=== PATIENT | female | born 1990 | race Caucasian/White ===

== ENCOUNTER 2018-11-21 05:05 | Inpatient (IN) | payer OTHER, SELFPAY ==
--- NOTE | 2018-11-15 14:00 | HP.PCM_ITS ---
History and Physical Date of Admission: 11/21/18 Pre-Op History and Physical HPI: The patient is a 28 year old female presenting for pre-operative visit. She is scheduled for , for h/o 4th degree lac on 11/21/18. Procedure discussed along with risks, benefits and complications. Other alternatives discussed for management. Consent form signed? Yes. PAST MEDICAL HISTORY Diagnosis Date ? Anemia ? Anxiety ? anxiety ? Gestational diabetes mellitus, class A1 12/11/2015 ? History of blood transfusion 4 units after delivery ? hemorrhage PAST SURGICAL HISTORY Procedure Laterality Date ? EXTRACTION ERUPTED TOOTH/EXR wisdom ? PAST SURGICAL HISTORY OF repair 4th degree vag lac and sulcus tear, D&C for PPH ? SKIN BIOPSY HX benign mole removal Current Outpatient Medications Medication Sig Dispense Refill ? ferrous sulfate (IRON ORAL) Take by mouth. ? ranitidine (ZANTAC) 150 mg tablet ? docosahexanoic acid (DHA ORAL) Take by mouth. ? PNV95/FERROUS FUMARATE/FA ( ORAL) Take by mouth. No current facility-administered medications for this visit. 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 Osteoporosis Mother ? Heart Mother heart murmur ? Diabetes Father ? Psychiatry Father anxiety ? No Known Problems Brother ? No Known Problems Sister ? Osteoporosis Maternal Grandmother ? Heart Maternal Grandfather ? No Known Problems Paternal Grandmother ? No Known Problems Paternal Grandfather ? No Known Problems Son REVIEW OF SYMPTOMS:. GENERAL: denies fevers or chills ENDOCRINOLOGY: has not been on steroids Cardiology : denies palpitations or chest pain Respiratory: denies SOB or cough Hematology: denies history of prolonged bleeding or easy bruising or VTE Allergy: Denies history of personal or family history of allergy to anesthesia PHYSICAL EXAMINATION: VITALS: Last menstrual period 02/20/2018, currently . GENERAL: The patient is well nourished, well hydrated in no acute distress. , The patient is oriented to time, place, and person. NECK: Supple. No lynphadenopathy, normal thyroid, no thyromegaly. LUNGS: Clear to auscultation bilaterally. no wheezes, rhonchi or rales HEART: Regular rate and rhythm, Normal heart sounds and No murmurs or gallops abd- soft, nontender, gravid IMPRESSION: 39 weeks 1 day on 11/21/18 for primary c/s for h/o LGA fetus and 4th degree lac PLAN: The risks/benefits/alternatives and personal involved for the planned c- s were reviewed with the patient. Her questions were answered to her satisfaction and she desires to proceed. Consent was signed. I reviewed with her postop instructions and expectations. I have reviewed and updated past medical and surgical history, medications and allergies this H&P was completed in my office on 11/15/18 Madison Wright M.D.
[2018-11-21] VITALS (21 sets, daily range): BP systolic 94–109; BP diastolic 36–72; PULSE 67–106; RESP 15–20; TEMP 36.1–36.7; O2SAT 97–100; BMI 28.8
[2018-11-21] MEDS: Lactated Ringers 1,000 ML 999 ML IV (05:40)
[2018-11-21 06:11] LABS: Absolute Lymphocyte Count 1.68 X10^3/ul (0.83-4.51); Absolute Neutrophil Count 4.5 X10^3/uL (2.0-7.7); Basophil# 0.02 X10^3/uL; Basophil% 0.3 % (0-1); Eosinophil# 0.12 X10^3/uL; Eosinophils% 1.7 % (0-5); Hematocrit 34.6 % (37-47); Hemoglobin 11.3 g/dl (12.0-15.0); Lymphocyte # 1.68 X10^3/ul (4.0); Lymphocyte % 23.5 % (19-41); Mean Corp Hgb Conc 32.7 g/gl (32-36); Mean Corpuscular Hgb 28.4 pg (27.0-32.0); Mean Corpuscular Volume 86.9 fL (81-99); Mean Platelet Vol. 11.1 fl (6.2-12.0); Monocyte# 0.77 X10^3/uL; Monocyte% 10.8 % (0-10); Neutrophil # 4.47 X10^3/uL (2.7-7.7); Neutrophil % 62.6 % (47-70); Platelet Count 178 K/mm3 (150-450); RBC Distribution Width CV 15.3 % (11.6-14.6); RBC Distribution Width SD 48.9 fl (35.1-43.9); Red Blood Count 3.98 M/mm3 (4.2-5.4); White Blood Count 7.1 K/mm3 (4.4-11.0)
[2018-11-21 06:18] LABS: POSITIVE COUNT NO; POSITIVE DIFFERENTIAL NO; POSITIVE MORPHOLOGY NO
[2018-11-21] MEDS: Lactated Ringers 1,000 ML 150 ML IV (06:42)
[2018-11-21] MEDS: Sodium Citrate/Citric Acid 30 ML UDC PO (07:15)
[2018-11-21] MEDS: Cefazolin 2 GM in 0.9% Normal Saline 100 ML IV (07:26)
[2018-11-21] MEDS: Oxytocin 30 units/NS 500 ml 30 UNITS/500 ML IV.SOLN 167 UNITS IV (07:47)
[2018-11-21] MEDS: Methylergonovine 0.2 MG/ML Ampul IM (07:49)
[2018-11-21] MEDS: miSOPROStol 200 MCG Tablet 400 MCG BUCCAL (07:52)
[2018-11-21] MEDS: Carboprost Tromethamine 250 MCG/ML Ampul IM (07:55)
--- NOTE | 2018-11-21 08:14 | OP.PCM_ITS ---
Report of Operation Date of Procedure: 11/21/18 toll bridge operator: Roseline Olsen Type of Anesthesia:: Spinal Anesthesiologist: Abdulkadir Belle Special Medications: cytotec buccal and rectal, methergine, hemabate Delivery Classification: Scheduled Final ERIC: 11/27/18 Final ERIC Source: US <20 weeks Gestational age: 39 Weeks and 1 Days Indications for : - - primary c/s, h/o 4th degree laceration and LGA infant Description of Procedure: The patient was taken to the operating room. She was prepped and draped in the dorsal supine position with a leftward tilt. A Pfannenstiel skin incision was made approximately 2 cm above the symphysis pubis and carried through to underlying layer fascia with the scalpel. The fascia was incised incised in the midline and extended laterally with the Patel scissors. The fascia was dissected off the rectus muscles with blunt and sharp dissection. The rectus muscles were in the midline and the peritoneum was entered bluntly. The peritoneal incision was stretched and the bladder blade was placed. The uterine incision was made in a low transverse fashion with the scalpel and extended superiorly and inferiorly with blunt dissection. The amniotic membranes were ruptured bluntly and clear amniotic fluid returned. The infant's head was brought to the incision in the flexed position and delivered without difficulty. The remainder of the was delivered with gentle traction and fundal pressure in the standard fashion. The mouth and nares were bulb suctioned. The cord was clamped and cut as the infant was stimulated. Cord clamping was delayed approximately 30 seconds. The infant was handed off to the waiting nursing staff at the head of the bed for immediate skin to skin. The placenta was delivered with fundal massage and gentle traction in the standard fashion. The uterus was exteriorized and cleared of all clots and debris. The cervix was dilated with a ring forcep. It was noted that there was some atony. Immediate fundal massage was initiated. Anesthesia began to inc rease the rate of Pitocin infusion. Patient was then given Methergine IM x1. I began to close the uterine incision. There was still some significant atony. 400 mcg of Cytotec was placed buccally. The uterine incision was closed with #1 Vicryl in a running locked fashion. A second layer of the same suture was used in an imbricating fashion to obtain hemostasis. The incision was examined and was found to be hemostatic. However, the uterus was still a little bit atonic. A dose of Hemabate was then given IM. The uterus was placed back into the peritoneal cavity and hemostasis was again c onfirmed. The rectus muscles were examined and any bleeding was Bovie cauterized. The parietal peritoneum and rectus muscles were closed en bloc with an 0 Vicryl running suture. The rectus fascia was examined and any bleeding was Bovie cauterized and the rectus fascia was closed with 1 Vicryl suture in a running standard fashion. At this point, the patient began to get nauseous and the buccal Cytotec was spit out. The uterus was more firm at this point. Patient then had an emesis. The subcutaneous tissue was examining and any bleeding was Bovie cauterized. The skin was closed in a subcuticular fashion by the PROCESS LEAD with me present in the labor and delivery suite. I performed the remainder of the procedure with assistance. 400 mcg of Cytotec was placed rectally at the completion of the procedure to help prevent further atony. All sponge, lap, and needle counts were correct. The patient was taken to her room for recovery in a stable condition. Amniotic Membrane Rupture Type: Artificial Amniotic Fluid Description: Clear Placenta Disposition: [facility] Drain: [place] to straight drain Fluids Replaced: 1000cc Cord Entanglement: None Nuchal Cord Compression: Without compression Cord Vessel Description: 3 Vessels Esitmated Blood Loss (ml): 1000 Gender: Male (1 minute): 8 (5 minute): 9 Delayed cord clamping: Yes Pre-op Antibiotic Given: Ancef 2 grams IV x1 Complications: None - Admit VTE Documentation VTE Present on Admission: No VTE Mechan Device Prophylaxis: SCD's VTE Pharm Prophylaxis ordered?: Yes
[2018-11-21] MEDS: miSOPROStol 200 MCG Tablet 400 MCG RECTAL (08:23)
[2018-11-21] MEDS: Lactated Ringers 1,000 ML 100 ML IV ×2 (09:04→13:10)
[2018-11-21] MEDS: Ondansetron 4 MG/2 ML Vial IV (13:26)
[2018-11-21] MEDS: Ketorolac 30 MG/ML Syringe IV ×2 (15:30→21:09)
--- NOTE | 2018-11-21 15:41 | NURSING ---
1530 pt oob up to chair
--- NOTE | 2018-11-21 16:49 | NURSING ---
1630 pt returned to bed
[2018-11-21] MEDS: Senna/Docusate Sodium 1 Tablet PO (21:09)
[2018-11-22 01:45] VITALS: PULSE 91; RESP 18; O2SAT 98
[2018-11-22] MEDS: Ketorolac 30 MG/ML Syringe IV ×3 (03:39→14:56)
[2018-11-22 03:40] VITALS: BP 94/44; PULSE 86; RESP 18; TEMP 36.6; O2SAT 98
[2018-11-22] MEDS: 0.9% Saline Lock 10 ML Syringe IV ×3 (03:45→14:56)
[2018-11-22 05:55] VITALS: PULSE 74; RESP 18; O2SAT 96
[2018-11-22] MEDS: Enoxaparin 40 MG/0.4 ML Syringe SC (05:57)
[2018-11-22 06:48] LABS: Hematocrit 28.4 % (37-47); Hemoglobin 9.3 g/dl (12.0-15.0); Mean Corp Hgb Conc 32.7 g/gl (32-36); Mean Corpuscular Hgb 29.2 pg (27.0-32.0); Mean Platelet Vol. 11.4 fl (6.2-12.0); Platelet Count 168 K/mm3 (150-450); RBC Distribution Width CV 15.4 % (11.6-14.6); RBC Distribution Width SD 48.9 fl (35.1-43.9); Red Blood Count 3.19 M/mm3 (4.2-5.4); Scan Indicated on CBC? Y/N NO; White Blood Count 9.8 K/mm3 (4.4-11.0)
--- NOTE | 2018-11-22 07:47 | PCM.PN.OB ---
Subjective: Pain well controlled, average lochia. Manuel. regular diet. - Physical Exam General: Alert, Cooperative, No apparent distress Abdomen: Soft, Distended - mildly, softly, Tender - appropriately Extremities: Edema - trace Skin: Incision - bandage clean, dry and intact Vital Signs Temp Pulse Resp BP Pulse Ox 97.8 F 74 18 94/44 L 96 11/22/18 03:40 11/22/18 05:55 11/22/18 05:55 11/22/18 03:40 11/22/18 05:55 Oxygen Delivery Method Room Air Weight: 78.6 kg Body Mass Index (BMI) 28.8 Intake and Output for Last 24 Hours 11/20/18 11/21/18 11/22/18 23:59 23:59 23:59 Intake Total 6560 / 6560 Output Total 3350 / 3350 Balance 3210 / 3210 Laboratory Tests Past 24 Hrs 11/22/18 06:10 WBC 9.8 RBC 3.19 L Hgb 9.3 L Hct 28.4 L MCV 89.0 MCH 29.2 MCHC 32.7 RDW 15.4 H RDW Differential 48.9 H Plt Count 168 MPV 11.4 Medical Necessity - Tobacco Use Smoking Status: Never smoker Assessment/Plan POD#1 s/p primary c/s doing well routine care infant and doing well
[2018-11-22 08:00] VITALS: BP 107/64; PULSE 74; RESP 16; TEMP 35.5; O2SAT 99
[2018-11-22] MEDS: Senna/Docusate Sodium 1 Tablet PO ×3 (09:19→21:12)
[2018-11-22 14:00] VITALS: BP 101/59; PULSE 91; RESP 18; TEMP 36.7; O2SAT 99
[2018-11-22] MEDS: Acetaminophen 500 MG Tablet 1000 MG PO (16:59)
[2018-11-22] MEDS: oxyCODONE 5 MG Tablet PO (18:51)
[2018-11-22] MEDS: Ketorolac 15 MG/ML Vial 30 MG IV (21:07)
[2018-11-22 21:15] VITALS: BP 93/63; PULSE 79; RESP 18; TEMP 36.2
[2018-11-23 01:20] VITALS: BP 97/64; PULSE 87; RESP 18; TEMP 36.3
[2018-11-23] MEDS: Ketorolac 15 MG/ML Vial 30 MG IV (03:51)
[2018-11-23] MEDS: 0.9% Saline Lock 10 ML Syringe IV (03:52)
[2018-11-23] MEDS: Enoxaparin 40 MG/0.4 ML Syringe SC (05:23)
[2018-11-23 08:09] VITALS: BP 104/69; PULSE 106; RESP 16; TEMP 36.8; O2SAT 96
[2018-11-23 08:16] VITALS: PULSE 106
--- NOTE | 2018-11-23 08:21 | DCINST_ITS ---
Discharge Diet: No Restrictions Discharge Activity: Return to Normal Activity, May Not Drive - for 2 weeks, May not drive while taking narcotic pain medications., May Shower, May Take a Tub Bath - in 7 days. May resume sexual activity in: 4-6 weeks Lifting Restrictions: 20 pounds Additional Activity Instructions:: Nothing in the vagina for 4-6 weeks. You may return to work/school in 6 weeks. Call your doctor if your incision/area has: Continuous Slow Oozing, Sudden Increased Bleeding, Increased Pain/ Swelling, Increased Redness, Foul Smelling Discharge Call your doctor if you observe: Fever of 101 or Higher, Using more than one pad per hour - for 2 hours Suture Line Care: Avoid Pulling/Pushing, Avoid Pinching/Bending Cleanse incision/area with: Keep Dressing Clean & Dry Additional Instructions: If you experience any of the following, contact your healthcare provider. * Bleeding that soaks a pad every hour for 2 hours * Fever 100.4 or higher * Unrelieved incision or abdominal pain * Swelling, redness, discharge or bleeding from your incision or episiotomy site * Your incision begins to separate * Problems urinating (including inability to urinate or burning while urinating). * Visual changes * Severe headache * Flu-like symptoms * Pain or redness in one of both of your breasts * Pain, warmth, tenderness or swelling in your legs, especially the calf area * Frequent nausea and vomiting * Symptoms of depression or anxiety If you experience any of the following, call 911 or go to the nearest Emergency Room. * Chest pain * Problems breathing * Seizure activity * Partial or complete paralysis of a body part, slurred speech, weakness or drooping of the face, or a sudden inability to walk or hold your balance Allergies/Adverse Reactions: Allergies erythromycin base [From Pediazole] Allergy (Verified 11/21/18 05:27) Unknown Sulfa (Sulfonamide Antibiotics) Allergy (Verified 11/21/18 05:27) Hives sulfisoxazole [From Pediazole] Allergy (Verified 11/21/18 05:27) Unknown Medications to take at Discharge Vits [Prenatabs FA ] 1 tablet PO DAILY 12/15/15 Ferrous Sulfate 325 mg PO DAILY 11/21/18 Docusate Sodium [Colace] 100 mg PO BID #30 cap 07/10/19 Ibuprofen [Motrin] 600 mg PO Q6H PRN PRN #60 tab 11/23/18 Oxycodone HCl/Acetaminophen [Percocet 5/325] 1 - 2 tablet PO Q6H PRN PRN 7 Days #28 tablet 11/23/18 SimETHICONE [Mylicon] 80 mg PO PCHS PRN #30 tab 11/23/18 The following prescriptions were given: Docusate Sodium [Colace] 100 mg PO BID #30 cap Transmission Status: Pending to [id number] Ibuprofen [Motrin] 600 mg PO Q6H PRN PRN #60 tab PRN Reason: Pain Transmission Status: Pending to [id number] SimETHICONE [Mylicon] 80 mg PO PCHS PRN #30 tab PRN Reason: Indigestion/stomach pain Transmission Status: Pending to [id number] Oxycodone HCl/Acetaminophen [Percocet 5/325] 1 - 2 tablet PO Q6H PRN PRN 7 Days #28 tablet PRN Reason: Pain Transmission Status: Received by [id number] Follow-Up: Call to make an appointment with your doctor for an incision check in 1-2 weeks. You will also need a 6 week post- follow up appointment. Test results from this visit will be discussed in further detail at your follow- up appointment, if applicable. Please Follow Up With: Madison Wright MD - Call to make an appointment for an incision check in 1-2 [phone] When: You will need a post- check in 6 weeks. Primary Care Physician: Glenis Singh DO [Primary Care Provider] -
--- NOTE | 2018-11-23 08:21 | PCM.PN.OB ---
Subjective: Pain well controlled. Average lochia. Has had flatus but no bowel movement. Tolerating regular diet. - Physical Exam General: Alert, Cooperative, No apparent distress Abdomen: Soft, Non-Distended, Tender - Appropriately, - - Fundus firm below the umbilicus. Extremities: Edema - Trace Skin: Incision - Bandages clean dry and intact. Vital Signs Temp Pulse Resp BP Pulse Ox 98.3 F 106 H 16 104/69 96 11/23/18 08:09 11/23/18 08:16 11/23/18 08:09 11/23/18 08:09 11/23/18 08:09 Oxygen Delivery Method Room Air Weight: 78.6 kg Body Mass Index (BMI) 28.8 Intake and Output for Last 24 Hours 11/21/18 11/22/18 11/23/18 23:59 23:59 23:59 Intake Total 6560 / 6560 Output Total 3350 / 3350 1000 / 1000 Balance 3210 / 3210 -1000 / -1000 Medical Necessity - Tobacco Use Smoking Status: Never smoker Assessment/Plan Postoperative day #2 status post repeat . Patient is doing well. Infant is breast-feeding doing well. Patient desires routine prescriptions and discharge home today.
[2018-11-23] MEDS: Senna/Docusate Sodium 1 Tablet PO (08:22)
[2018-11-23] MEDS: oxyCODONE 5 MG Tablet PO (08:22)
--- NOTE | 2018-11-23 08:24 | PCM.DC.SUM ---
Discharge Date and Diagnosis Date of Admission: 11/21/18 Date of Discharge: 11/23/18 Hospital Course and Treatment Operations: - - Primary low transverse section via Pfannenstiel skin incision with double layer closure of the uterus. Summary of Care Provided: The patient is a 28 year old female admitted at 39+ weeks for primary section due to history of fourth degree laceration. was LGA. The primary section was performed without difficulty. By postoperative day #2 the patient was ambulating, urinating tolerating regular diet without difficulty. She was discharged home with routine instructions. She did have mild atony without hemorrhage at time of delivery. She had mild acute blood loss anemia appropriate for blood loss during surgery and she was tolerating this well. [] - Physical Exam Vital Signs Temp Pulse Resp BP Pulse Ox 98.3 F 106 H 16 104/69 96 11/23/18 08:09 11/23/18 08:16 11/23/18 08:09 11/23/18 08:09 11/23/18 08:09 Oxygen Delivery Method Room Air Weight: 78.6 kg Body Mass Index (BMI) 28.8 Intake and Output for Last 24 Hours 11/21/18 11/22/18 11/23/18 23:59 23:59 23:59 Intake Total 6560 / 6560 Output Total 3350 / 3350 1000 / 1000 Balance 3210 / 3210 -1000 / -1000 Discharge Diet: No Restrictions Discharge Activity: Return to Normal Activity, May Not Drive - for 2 weeks, May not drive while taking narcotic pain medications., May Shower, May Take a Tub Bath - in 7 days. May resume sexual activity in: 4-6 weeks Additional Activity Instructions:: Nothing in the vagina for 4-6 weeks. You may return to work/school in 6 weeks. Call your doctor if your incision/area has: Continuous Slow Oozing, Sudden Increased Bleeding, Increased Pain/ Swelling, Increased Redness, Foul Smelling Discharge Call your doctor if you observe: Fever of 101 or Higher, Using more than one pad per hour - for 2 hours Suture Line Care: Avoid Pulling/Pushing, Avoid Pinching/Bending Cleanse incision/area with: Keep Dressing Clean & Dry Home Medications: Medications to take at Discharge Vits [Prenatabs FA] 1 tablet PO DAILY 12/15/15 Ferrous Sulfate 325 mg PO DAILY 11/21/18 Docusate Sodium [Colace] 100 mg PO BID #30 cap 11/23/18 Ibuprofen [Motrin] 600 mg PO Q6H PRN PRN #60 tab 11/23/18 Oxycodone HCl/Acetaminophen [Percocet 5/325] 1 - 2 tab PO Q6H PRN PRN 7 Days #28 tab 11/23/18 SimETHICONE [Mylicon] 80 mg PO PCHS PRN #30 tab 11/23/18 Following Prescrptions Were Given to Patient: Docusate Sodium [Colace] 100 mg PO BID #30 cap Transmission Status: [facility] by [id number] Ibuprofen [Motrin] 600 mg PO Q6H PRN PRN #60 tab PRN Reason: Pain Transmission Status: Received by [id number] SimETHICONE [Mylicon] 80 mg PO PCHS PRN #30 tab PRN Reason: Indigestion/stomach pain Transmission Status: Received by [id number] Oxycodone HCl/Acetaminophen [Percocet 5/325] 1 - 2 tab PO Q6H PRN PRN 7 Days #28 tab PRN Reason: Pain Transmission Status: Re[facility] by [id number] Primary Care Physician: Glenis Singh DO [Primary Care Provider] - Please Follow Up With: Madison Wright MD - Call to make an appointment for an incision check in 1-2 [phone] When: You will need a post- check in 6 weeks. Medical Necessity - Tobacco Use Smoking Status: Never smoker Meaningful Use Info Meaningful Use Diagnoses (Choose all that apply): None applicable
[2018-11-23] MEDS: Acetaminophen 500 MG Tablet 1000 MG PO (11:07)
[2018-11-23 13:55] VITALS: BP 106/60; PULSE 99; RESP 16; TEMP 36.5; O2SAT 97
[2018-11-23] MEDS: Ibuprofen 600 MG Tablet PO (14:01)
== END 2018-11-23 14:30 | disposition home or self-care (01) | DRG 787 ==
PROVIDERS: Admitting Provider Obstetrics & Gynecology; Family Provider Family Medicine; PCP Family Medicine; Visit Provider Obstetrics & Gynecology
PROC: 10D00Z1 Extraction of Products of Conception, Low, Open Approach (ICD-10-PCS; CPT 59514; principal; 2018-11-21 07:15)
DX: O36.63X0 Maternal care for excessive fetal growth, third trimester, not applicable or unspecified (principal); D62 Acute posthemorrhagic anemia; O99.02 Anemia complicating childbirth; Z3A.39 39 weeks gestation of pregnancy; Z37.0 Single live birth
CPT/HCPCS: 85025; 85027; 86850; 86900; 99218; J7120; A4216; G0378; J2405

== ENCOUNTER 2021-06-12 09:36 | Inpatient (IN) | payer BC, SELFPAY ==
[2021-06-12] VITALS (20 sets, daily range): BP systolic 83–120; BP diastolic 40–69; PULSE 69–96; RESP 16–18; TEMP 36–36.9; O2SAT 95–100; BMI 28.9
[2021-06-12] MEDS: Acetaminophen 500 MG Tablet 1000 MG PO ×5 (04:35→22:45)
[2021-06-12] MEDS: Lactated Ringers 1,000 ML 999 ML IV (10:10)
[2021-06-12 10:26] LABS: Absolute Lymphocyte Count 1.15 X10^3/uL (0.83-4.51); Absolute Neutrophil Count 4.7 X10^3/uL (2.0-7.7); Basophil# 0.03 X10^3/uL; Basophil% 0.5 % (0-1); Eosinophil# 0.08 X10^3/uL; Eosinophils% 1.2 % (0-5); Hematocrit 28.8 % (37-47); Hemoglobin 9.4 g/dL (12.0-15.0); Lymphocyte # 1.15 X10^3/ul (0.83-4.51); Lymphocyte % 17.3 % (19-41); Mean Corp Hgb Conc 32.6 g/dL (32-36); Mean Corpuscular Hgb 27.3 pg (27.0-32.0); Mean Corpuscular Volume 83.7 fL (81-99); Mean Platelet Vol. 10.3 fl (6.2-12.0); Monocyte# 0.58 X10^3/uL; Monocyte% 8.7 % (0-10); NRBC Flagged by Analyzer 0 % (0-5); Neutrophil % 70.5 % (47-70); Platelet Count 212 K/mm3 (150-450); RBC Distribution Width CV 14.5 % (11.6-14.6); RBC Distribution Width SD 43.5 fl (35.1-43.9); Red Blood Count 3.44 M/mm3 (4.2-5.4); White Blood Count 6.7 K/mm3 (4.4-11.0)
[2021-06-12 10:56] LABS: Bedside Glucose 77 mg/dL (70-110)
[2021-06-12] MEDS: Lactated Ringers 1,000 ML 150 ML IV (11:11)
[2021-06-12] MEDS: Sodium Citrate/Citric Acid 30 ML UDC PO (11:48)
[2021-06-12] MEDS: Cefazolin 2 GM in 0.9% Normal Saline 100 ML IV (11:52)
--- NOTE | 2021-06-12 12:02 | HP.PCM.OB_ITS ---
[facility] - General General Date of Admission: 06/12/21 Date of Service: 06/12/21 HPI Maynor BRADFORD, is a 31 3 para 2 with EDC of Jul 02, 2021 presents for repeat section. 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 Her antepartum testing has been reassuring. Admits he was complicated to date by gestational diabetes that is been well controlled. In addition she had Covid early in the third trimester. Maternal Data Information Final ERIC: 07/02/21 Gestational age: 37 1/ [facility] Medical History (Updated 06/12/21 @ 12:[address] Madison Wright MD) Anxiety Gestational diabetes macrosomia Pilonidal abscess of crow cleft Pilonidal disease hemorrhage Home Medications Vitamin 1 tab PO/SL DAILY 06/12/21 [History Last Taken 06/11/21 08:00] Allergy/AdvReac Type Severity Reaction Status Date / Time erythromycin base Allergy Unknown Verified 06/12/21 09:58 [From Pediazole] Sulfa (Sulfonamide Allergy Hives Verified 06/12/21 09:58 Antibiotics) sulfisoxazole Allergy Unknown Verified 06/12/21 09:58 [From Pediazole] Family History Father Cancer prostate cancer Diabetes Mother aortic valve murmur Osteoporosis Surgical History (Updated 06/12/21 @ 12:[address] Madison Wright MD) History of history removal wisdom teeth Social History (Updated 03/10/19 @ 17:[address] John Croft MD) Smoking Status: Never smoker alcohol intake: never substance use type: does not use History Elective abortions Hx Para 2 Spontaneous abortions Hx # Term Pregnancies Ectopic pregnancies Hx # Pregnancies Multiple births # of living children ROS Constitutional Constitutional: Denies fatigue, fever(s) or malaise Eyes Eyes: Denies change in vision ENT HEENT: Denies dizziness or headache(s) Cardiovascular Cardiovascular: Denies chest pain, dyspnea or lightheadedness Respiratory/Chest Respiratory/Chest: Denies cough or dyspnea Gastrointestinal Gastrointestinal: Denies change in bowel habits Genitourinary Genitourinary: Denies burning urination or genital lesions Integumentary Integumentary: Denies rash Neurologic Neurologic: Denies confusion, dizziness, headache(s), numbness or weakness Vital Signs Vital Signs Vital Signs: 06/12/21 10:40 Temperature 97.6 F L Temperature Source Temporal Pulse Rate 88 Respiratory Rate 16 Blood Pressure 103/61 Blood Pressure Mean 75 Blood Pressure Source Monitor Blood Pressure Position Semi-Fowlers Blood Pressure Location Left Arm Pulse Ox 95 Oxygen Delivery Method Room Air Weight Weight: 78.8 kg Body Mass Index (BMI) 28.9 Physical Exam Const alert and no apparent distress General Appearance: cooperative HEENT normocephalic Resp normal respiratory effort Cardio regular rate GI soft to palpation GI Narrative: gravid, nontender, appropriate for gestational age Extremity no calf tenderness General Extremity: edema Skin no wounds Rashes: No rashes noted Psych activity/motor behavior normal Labs Labs Labs: Blood Type O POSITIVE Antibody Screen POSITIVE H Hct 28.8 % (37-47) L Hgb 9.4 g/dL (12.0-15.0) L Rhogam given: No Assessment & Plan (1) 37 weeks gestation of : (2) Gestational diabetes mellitus, class A1: (3) 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 Discussed risk of delivery at 37 weeks and indication for this. Consent was signed.
--- NOTE | 2021-06-12 12:07 | PLAC_PTH ---
PATIENT: ROSIE BRADFORD LOC: [facility] U#:[id number] AGE/SX: 31/F ROOM: WP007 RE06/12/[address]: Dr. Madison Wright MD : 1990 BED: 1 DIS: 06/14/2021 SPEC #: [id number] RECD: 06/12/21 14:31 STATUS: KIRSTY REQ #: [id number] NELLY: 06/12/21 12:[address]: Madison Wright DEPT: SURGICAL PATHOLOGY RECD BY: Shraddha Lucio ENTERED: 06/13/21 07:59 SP TYPE: PLACENTA OTHR DR: Dr. Glenis Singh, DO Tissues: Placenta, NOS Procedures: Surgery Specimen Level V HEADER OPERATION: Repeat section PRE-OP DIAGNOSIS: Isoimmunization in TISSUE SUBMITTED: Placenta MICROSCOPIC DIAGNOSIS Stevens placenta (555 gm): Umbilical cord ? trivascular with no inflammation. Placental membranes ? acute deciduitis. Placental disc ? foci of intraparenchymal hemorrhage, Morgan-Nish change, intervillous congestion and mild chronic decidual inflammation. AM:gloria 06/16/2021 MICROSCOPIC DESCRIPTION Slides are reviewed. GROSS DESCRIPTION SPECIMEN: PLACENTA / CLINICAL INFORMATION: A. Weight: 3.51 kg B. Gestational Age: 37 weeks C. Sex: Male PLACENTAL WEIGHT (POST FIXATION): 555 gm PLACENTAL DIMENSIONS: 18 x 16 x 3 cm PLACENTAL SHAPE: Usual ovoid PLACENTAL WEIGHT FOR GESTATIONAL AGE: Over 99th percentile MEMBRANES - Present A. Insertion: Marginal B. Site of rupture from edge: At edge of placental disc C. Color of membrane: Rodriguez-dickey D. Abnormalities: None UMBILICAL CORD - Present A. Color: Rodriguez-dickey B. Insertion: Paracentral C. Length: 32 cm D. Diameter: 1.5 cm E. Number of vessels: Three F. Abnormalities: None PLACENTAL DISC - Present A. Color of surface: Rodriguez-dickey B. surface abnormalities: surface shows a few pleural plaque. The large plaque measures 1.5 cm in greatest dimension. C. Maternal cotyledons: Intact with minimal tears D. Attached retro placental clot: No clot E. Cut surface: Dark red and spongy F. Lesions: Sections reveal three rodriguez, indurated areas. largest measuring 2 cm in greatest dimension. G. Separate clot: Absent SECTIONS SUBMITTED: 1. Membrane roll 2. Cord, maternal end 3. Cord, end 4. Placental disc, and maternal surfaces, lesion, plaque 5. Placental disc, and maternal surfaces, lesion 6. Placental disc, and maternal surfaces, plaque SJ:gloria 06/13/2021 TC:2 CPT: 49341
--- NOTE | 2021-06-12 12:40 | OP.PCM_ITS ---
Assessment & Plan (1) delivery delivered: (2) 37 weeks gestation of : Maternal Data Information Final ERIC: 07/02/21 Gestational age: 37 1/7 Details Operative Information Date of Procedure: 06/12/21 Pre-Operative Diagnosis: 37 weeks, previous c/s Post-Operative Diagnosis: same Indications for : Repeat Elective Classification: Scheduled Procedure Type: low transverse irradiated fuel handler #1: Roseline Olsen Type of Anesthesia: Spinal Anesthesiologist: Vivien Urias Special Medications: duramorph Antibiotic Given: Ancef 2 grams IV x1 Drain: [place] to straight drain Estimated Blood Loss: 800 Fluids Replaced: 1000 Procedure Start Time: 12:15 Procedure Stop Time: 12:50 Time of Delivery: 12:17 Findings Description of Procedure: The patient was taken to the operating room. She was prepped and draped in the dorsal supine position with a leftward tilt. A Pfannenstiel skin incision was made approximately 2 cm above the symphysis pubis and carried through to underlying layer fascia with the scalpel. The fascia was incised incised in the midline and extended laterally with the Patel scissors. T he fascia was dissected off the rectus muscles with blunt and sharp dissection. The rectus muscles were in the midline and the peritoneum was entered bluntly. The peritoneal incision was stretched and the bladder blade was placed. The uterine incision was made in a low transverse fashion with the scalpel and extended superiorly and inferiorly with blunt dissection. The amniotic membr anes were ruptured bluntly and clear amniotic fluid returned. The 's head was brought to the incision in the flexed position and delivered without difficulty. The remainder of the infant was delivered with gentle traction and fundal pressure in the standard fashion. The mouth and nares were bulb suctioned. The cord was clamped and cut as the infant was stimulated. Cord clamping was delayed. The infant was handed off to the waiting nursing staff. The placenta was delivered with fundal massage and gentle traction in the standard fashion. The uterus was exteriorized and cleared of all clots and debris. The cervix was dilated with a ring forcep. The uterine incision was closed with #1 Vicryl in a running locked fashion. A second layer of the same suture was used in an imbricating fashion. The incision was examined and was found to be hemostatic. The uterus was placed back into the peritoneal cavity and hemostasis was again confirmed. The rectus muscles were examined and any bleeding was Bovie cauterized. The parietal peritoneum and rectus muscles were closed en bloc with an 0 Vicryl running suture. The surgical teams outer gloves were then changed. The rectus fascia was examined and any bleeding was Bovie cauterized and the rectus fascia was closed with 1 Vicryl suture in a running standard fashion. The subcutaneous tissue was examining and any bleeding was Bovie cauterized. The subcutaneous tissue was reapproximated with 3-0 Vicryl suture. The skin was closed in a subcuticular fashion by the [employer] QUALITY ENGINEER with me present in the labor and delivery suite. I performed the remainder of the procedure with assistance. All sponge, lap, and needle counts were correct. The patient was taken to her room for recovery in a stable condition. Presentation: Positive for Vertex Amniotic Membrane Rupture Type: Spontaneous Amniotic Fluid Description: Clear Placental Delivery Description: Manual Removal Placenta Disposition: Sent to Pathology Cord Vessel Description: 3 Vessels Cord Entanglement: None Infant A Gender: Male (Neto, 8lb 6 oz) (1 minute): 9 (5 minute): 9 Delayed Cord Clamping: Yes Complications Complications: none Admit VTE Documentation VTE Present on Admission: No VTE Mechan Device Prophylaxis: SCD's VTE Pharm Prophylaxis Ordered: No Reason Prophylaxis Not Ordered: Procedure Not Indicated
[2021-06-12] MEDS: Oxytocin 30 units/NS 500 ml 30 UNITS/500 ML IV.SOLN 167 UNITS IV (13:27)
[2021-06-12] MEDS: Ketorolac 30 MG/ML Syringe IV ×2 (13:35→18:48)
[2021-06-12] MEDS: Methylergonovine 0.2 MG/ML Ampul IM (13:47)
[2021-06-12] MEDS: Lactated Ringers 500 ML IV.SOLN. IV (14:10)
[2021-06-12] MEDS: 0.9% Saline Lock 10 ML Syringe IV (14:22)
[2021-06-12] MEDS: HYDROmorphone 1 MG/ML Syringe IV (14:25)
[2021-06-12 14:31] LABS: Pathology Specimen OB SEE PATHOLOGY REPORT
[2021-06-12] MEDS: miSOPROStol 200 MCG Tablet 1000 MCG RC (14:32)
[2021-06-12 14:33] LABS: Absolute Lymphocyte Count 0.75 X10^3/uL (0.83-4.51); Absolute Neutrophil Count 8.5 X10^3/uL (2.0-7.7); Basophil# 0.02 X10^3/uL; Basophil% 0.2 % (0-1); Eosinophil# 0.01 X10^3/uL; Eosinophils% 0.1 % (0-5); Hematocrit 30.8 % (37-47); Hemoglobin 10.1 g/dL (12.0-15.0); Lymphocyte # 0.75 X10^3/ul (0.83-4.51); Lymphocyte % 7.8 % (19-41); Mean Corp Hgb Conc 32.8 g/dL (32-36); Mean Corpuscular Hgb 27.2 pg (27.0-32.0); Mean Corpuscular Volume 82.8 fL (81-99); Mean Platelet Vol. 10.6 fl (6.2-12.0); Monocyte# 0.22 X10^3/uL; Monocyte% 2.3 % (0-10); NRBC Flagged by Analyzer 0 % (0-5); Neutrophil # 8.54 X10^3/uL (2.7-7.7); Neutrophil % 88.4 % (47-70); Platelet Count 234 K/mm3 (150-450); RBC Distribution Width CV 14.4 % (11.6-14.6); RBC Distribution Width SD 42.6 fl (35.1-43.9); Red Blood Count 3.72 M/mm3 (4.2-5.4); White Blood Count 9.7 K/mm3 (4.4-11.0)
--- NOTE | 2021-06-12 14:39 | PCM.OPRPT ---
Problems Associated Problem List Diagnoses (1) hemorrhage: Report of Operation Date of Procedure: 06/12/21 Pre-Operative Diagnosis: hemorrhage Post-Operative Diagnosis: same Surgery/Procedure Performed:: evacuation of uterine clots, control of hemorrhage Surgeon: Madison Wright Type of Anesthesia: None Special Medications: IV dilauded 1 mg Specimen's removed: none Drains: none Estimated Blood Loss (mL): 450 Fluids Replaced: 500 Description of Procedure: I was called to labor and delivery to evaluate the patient because her uterus was boggy and they gave her a dose of Methergine. When I arrived, I was able to express approximately 100 cc of clots. The uterus was boggy. I performed an ultrasound which revealed some clots remaining in the uterus. I attempted to evacuate them manually but was unable to reach the fundus. Patient was then given 1 mg of Dilaudid IV. A second IV line was started. A set of coags and CBC were sent stat. The patient was typed and crossed for 2 units and the blood was to be held and not transfuse at this time. Then used manual evacuation as well as the banjo curette under ultrasound guidance to gently remove clots from the fundus to the uterus. 1000 mcg of Cytotec was placed rectally. The uterus then remained firm. Was approximately 3 cm below the umbilicus. Patient was given a 500 cc bolus of lactated Ringer's. Patient is stable at this time. We will recheck a CBC at 7 PM and in the morning. Findings and clinical course discussed with patient and her . Will give 1 more dose of antibiotics for infection prophylaxis. Grafts/Implants Used: none Complications none
[2021-06-12 14:41] LABS: Bedside Glucose 80 mg/dL (70-110)
[2021-06-12 14:43] LABS: Prothrombin Time (Protime)PT. 12.7 SECONDS (11.7-14.9)
[2021-06-12 14:44] LABS: Partial Thromboplast Time 23.3 Seconds (24.1-36.2)
[2021-06-12] MEDS: Lactated Ringers 1,000 ML 100 ML IV (16:27)
[2021-06-12] MEDS: Cefazolin 1 GM/50 ML BAG IV (17:58)
[2021-06-12 19:20] LABS: Hematocrit 28.5 % (37-47); Hemoglobin 9.4 g/dL (12.0-15.0); Mean Corpuscular Hgb 27.2 pg (27.0-32.0); Mean Corpuscular Volume 82.6 fL (81-99); Mean Platelet Vol. 10.7 fl (6.2-12.0); Platelet Count 234 K/mm3 (150-450); RBC Distribution Width CV 14.4 % (11.6-14.6); RBC Distribution Width SD 42.5 fl (35.1-43.9); Red Blood Count 3.45 M/mm3 (4.2-5.4); White Blood Count 13.4 K/mm3 (4.4-11.0)
[2021-06-13 00:35] VITALS: PULSE 83; RESP 18; O2SAT 96
[2021-06-13] MEDS: Ketorolac 30 MG/ML Syringe IV ×2 (01:38→08:15)
[2021-06-13] MEDS: 0.9% Saline Lock 10 ML Syringe IV (01:38)
[2021-06-13] MEDS: Acetaminophen 500 MG Tablet 1000 MG PO ×4 (04:51→22:30)
[2021-06-13 04:54] VITALS: BP 98/56; PULSE 74; RESP 18; TEMP 36.6
[2021-06-13 05:25] LABS: Bedside Glucose 86 mg/dL (70-110)
[2021-06-13 05:27] LABS: Hematocrit 28.6 % (37-47); Hemoglobin 9.1 g/dL (12.0-15.0); Mean Corp Hgb Conc 31.8 g/dL (32-36); Mean Corpuscular Hgb 26.8 pg (27.0-32.0); Mean Corpuscular Volume 84.4 fL (81-99); Mean Platelet Vol. 10.8 fl (6.2-12.0); Platelet Count 245 K/mm3 (150-450); RBC Distribution Width CV 14.5 % (11.6-14.6); RBC Distribution Width SD 43.8 fl (35.1-43.9); Red Blood Count 3.39 M/mm3 (4.2-5.4)
--- NOTE | 2021-06-13 06:52 | PN.OBGYN_ITS ---
Subjective Subjective Patient seen at bedside. Resting quietly. Denies any pain. Ambulating and voiding without difficulty. Lochia has decreased. Denies headache, dizziness, SOB or CP. independently. Anticipate discharge home tomorrow. Objective Data Objective Data Vital Signs: Vital Signs Temp Pulse Resp BP Pulse Ox 97.9 F 74 18 98/56 L 96 06/13/21 04:54 06/13/21 04:54 06/13/21 04:54 06/13/21 04:54 06/13/21 00:35 Oxygen Delivery Method Room Air Weight: 173 lb 11.588 oz Body Mass Index (BMI) 28.9 Intake & Output: Intake and Output for Last 24 Hours 06/11/21 06/12/21 06/13/21 23:59 23:59 23:59 Intake Total 6017.50 / 6017.50 Output Total 3125 / 3125 100 / 100 Balance 2892.50 / 2892.50 -100 / -100 Lab / Micro Data Result Diagrams: 06/13/21 05:15 Labs: Laboratory Results - last 24 hr 06/12/21 10:10: WBC 6.7, RBC 3.44 L, Hgb 9.4 L, Hct 28.8 L, MCV 83.7, MCH 27.3, MCHC 32.6, RDW Std Deviation 43.5, RDW Coeff of Pati 14.5, Plt Count 212, MPV 10.3, Immature Gran % (Auto) 1.800 H, Neut % (Auto) 70.5 H, Lymph % (Auto) 17.3 L, [place] % (Auto) 8.7, Eos % (Auto) 1.2, Baso % (Auto) 0.5, Absolute Neuts (auto) 4.7, Absolute Lymphs (auto) 1.15, Nucleated RBC % 0 06/12/21 10:10: Blood Type O POSITIVE, Antibody Screen POSITIVE H, Antibody Identification ANTI-LITTLE c 06/12/21 10:10: Crossmatch See Detail 06/12/21 10:10: Antigen Identification E ANTIGEN - NEGATIVE 06/12/21 10:10: Antigen Identification LITTLE c ANTIGEN - NEGATIVE 06/12/21 10:25: POC Glucose 77 06/12/21 14:25: WBC 9.7, RBC 3.72 L, Hgb 10.1 L, Hct 30.8 L, MCV 82.8, MCH 27.2, MCHC 32.8, RDW Std Deviation 42.6, RDW Coeff of Pati 14.4, Plt Count 234, MPV 10.6, Immature Gran % (Auto) 1.200 H, Neut % (Auto) 88.4 H, Lymph % (Auto) 7.8 L , [place] % (Auto) 2.3, Eos % (Auto) 0.1, Baso % (Auto) 0.2, Absolute Neuts (auto) 8.5 H, Absolute Lymphs (auto) 0.75 L, Nucleated RBC % 0 06/12/21 14:25: PT 12.7, INR 1.0, APTT 23.3 L 06/12/21 14:34: POC Glucose 80 06/12/21 19:08: WBC 13.4 H, RBC 3.45 L, Hgb 9.4 L, Hct 28.5 L, MCV 82.6, MCH 27.2, MCHC 33.0, RDW Std Deviation 42.5, RDW Coeff of Pati 14.4, Plt Count 234, MPV 10.7 06/13/21 05:15: WBC 11.0, RBC 3.39 L, Hgb 9.1 L, Hct 28.6 L, MCV 84.4, MCH 26.8 L, MCHC 31.8 L, RDW Std Deviation 43.8, RDW Coeff of Pati 14.5, Plt Count 245, MPV 10.8 06/13/21 05:17: POC Glucose 86 Micro: Microbiology 06/12/21 10:10 Nasal Secretion SARS-CoV-2 Antigen (Rapid) - Final ROS Eyes Eyes: Denies blurry vision, change in vision or spots in vision ENT HEENT: Denies dizziness or headache(s) Cardiovascular Cardiovascular: Denies abdominal pain, chest pain or dyspnea Respiratory/Chest Respiratory/Chest: Denies cough, dyspnea, shortness of breath at rest or shortness of breath with exertion Gastrointestinal Gastrointestinal: Denies abdominal pain, diarrhea or vomiting Genitourinary Genitourinary: Denies change in urinary stream, difficulty urinating or dysuria Musculoskeletal Musculoskeletal: Reports none Integumentary Integumentary: Denies rash Neurologic Neurologic: Denies dizziness, headache(s), memory loss or weakness Physical Exam Narrative Dressing is dry and intact Const alert and no apparent distress General Appearance: cooperative and comfortable Exam Limitations: no limitations HEENT normocephalic Eyes General Eye: normal appearance of both eyes Neck full ROM General: normal visual inspection Chest Chest: symmetrical chest wall rise Resp normal respiratory effort and normal air movement Effort and Inspection: symmetric chest movement Auscultation: clear to auscultation bilaterally Cardio regular rate and regular rhythm GI normal to inspection, nondistended, normoactive bowel sounds Back/Spine normal ROM Extremity full ROM and no calf tenderness General Extremity: normal exam except as noted Skin no rashes or lesions noted Neuro CN's II-XII intact bilaterally Psych mental status grossly normal Assessment & Plan (1) delivery delivered: (2) hemorrhage: QUALIFIERS: hemorrhage type: unspecified Qualified Code(s): O72.1 - Other immediate hemorrhage (3) Care and examination of lactating mother: PLAN: POD #1 Repeat C/S PPH- resolved HGB 9.1 today down from 9.4 Pain control support Anticipate discharge home tomorrow
[2021-06-13 08:04] VITALS: BP 91/51; PULSE 85; RESP 16; TEMP 35.9; O2SAT 96
[2021-06-13] MEDS: Senna/Docusate Sodium 1 Tablet PO ×2 (10:27→11:03)
[2021-06-13 12:00] VITALS: BP 101/59; PULSE 80; RESP 16; TEMP 36.6; O2SAT 96
[2021-06-13] MEDS: Ibuprofen 600 MG Tablet PO ×3 (12:42→23:47)
[2021-06-13 17:14] VITALS: BP 95/55; PULSE 81; RESP 16; TEMP 36.1; O2SAT 98
[2021-06-13] MEDS: oxyCODONE 5 MG Tablet PO (18:43)
[2021-06-13 19:45] VITALS: BP 104/63; PULSE 73; RESP 16; TEMP 36.1; O2SAT 97
--- NOTE | 2021-06-13 23:37 | NURSING ---
This RN present and agreeable to all documentation by Ace SHANE.
[2021-06-14] MEDS: Ibuprofen 600 MG Tablet PO ×2 (05:26→11:45)
== END 2021-06-14 12:00 | disposition home or self-care (01) | DRG 787 ==
PROVIDERS: Admitting Provider Obstetrics & Gynecology; PCP Family Medicine; Visit Provider Obstetrics & Gynecology
PROC: 10D00Z1 Extraction of Products of Conception, Low, Open Approach (ICD-10-PCS; CPT 59514; principal; 2021-06-12 11:45)
DX: O34.219 Maternal care for unspecified type scar from previous cesarean delivery (principal); O72.1 Other immediate postpartum hemorrhage; O24.419 Gestational diabetes mellitus in pregnancy, unspecified control; Z3A.37 37 weeks gestation of pregnancy; Z37.0 Single live birth; O36.1930 Maternal care for other isoimmunization, third trimester, not applicable or unspecified; Z86.16 Personal history of COVID-19; Z20.822 Contact with and (suspected) exposure to COVID-19
CPT/HCPCS: 59050; 82962; 85025; 85027; 85610; 85730; 86850; 86870; 86900; 86901; 86902; 86905; 86920; 86921; 86922; 87426; 88307; 99218; J7120; A4216; G0378; J2405

== ENCOUNTER 2025-04-08 05:42 | Emergency (ER) | payer OTHER, SELFPAY ==
[2025-04-08 05:43] VITALS: BP 112/60; PULSE 83; RESP 16; TEMP 36.5; O2SAT 100; BMI 30.3
[2025-04-08] MEDS: 0.9% Normal Saline (1000mL) 1,000 ML 999 ML IV (06:04)
[2025-04-08 06:16] LABS: Mucous, Urine 0 SEEN /hpf (<or=2+); Red Blood Cells-Urine 0 SEEN /hpf (0-5)
[2025-04-08 06:17] LABS: Hematocrit 41.1 % (37-47); Hemoglobin 13.8 g/dL (12.0-15.0); Immature Granulocytes Count 0.100 X10^3/uL (0.0-0.0); Mean Corp Hgb Conc 33.6 g/dL (32-36); Mean Corpuscular Volume 88.8 fL (81-99); Mean Platelet Vol. 11.1 fl (6.2-12.0); NRBC Flagged by Analyzer 0 % (0-5); Platelet Count 244 K/mm3 (150-450); RBC Distribution Width CV 13.1 % (11.6-14.6); RBC Distribution Width SD 42.1 fl (35.1-43.9); Red Blood Count 4.63 M/mm3 (4.2-5.4); White Blood Count 9.2 K/mm3 (4.4-11.0)
[2025-04-08 06:25] LABS: Color, Urine Yellow (Yellow); Glucose, Dipstick 250 mg/dl (Normal); Ketone-Dipstick Negative (Negative); Leukocyte Esterase-Dipstick Negative /ul (Negative); Nitrite-Dipstick Negative (Negative); Occult Blood-Urine Negative /ul (Negative); Protein-Dipstick 30 mg/dl (Negative); Specific Gravity, Urine 1.025 (1.002-1.030); Urine Bilirubin Dipstick Negative (Negative)
--- OUTSIDE RECORDS SUMMARY | 2025-04-08 06:25 | XMS RPT_ITS | CCD ---
Author Organization [facility] Care Team Providers Care Sensor Operator Name Role Phone RADHA GREEN Unavailable Unavailable MANOLO GREENShelliDAKOTA Unavailable Unavailable MERCEDES HOLLINS Unavailable Unavailable Marsha Goldman DO Primary Care Provider [phone] Marsha Goldman DO Primary Care Provider [phone] CASANDRA AMBROSIO, DR JAIN Primary Care Physician [phone] Poppy Menjivar PT Unavailable Unavailable CASANDRA AMBROSIO, DR JAIN Attending Unavailable CASANDRA AMBROSIO, DR JAIN Primary Care Unavailable MARC AGUSTIN Attending Unavailable MARSHA GOLDMAN Primary Care Unavailable JACQUI ESCOBAR Attending Unavailable MARSHA GOLDMAN Primary Care Unavailable SARA JACKSON Attending Unavailable SARA JACKSON Referring Unavailable MARSHA GOLDMAN Primary Care Unavailable MARSHA GOLDMAN Primary Care Unavailable SARA JACKSON Attending Unavailable JACQUI ESCOBAR Referring Unavailable MARSHA GOLDMAN Primary Care Unavailable JACQUI ESCOBAR Referring Unavailable MARSHA GOLDMAN Primary Care Unavailable Allergies Allergy Classification Reported Allergen(s) Allergy Type Date of Onset Reaction(s) Facility (6 sources) Sulfonamides (Antibiotic); Translations: [SULFA (SULFONAMIDE ANTIBIOTICS)] Propensity to adverse reactions 9 [facility] Work Phone: (1 source) Erythromycin / sulfiSOXAZOLE; Translations: [erythromycin-sul fisoxazole] Drug Allergy Hives [facility] (1 source) Sulfonamide; Translations: [sulfa drugs] Drug allergy Rash, Hives [facility] Medications Current Medications Medication Drug Class(es) Dates Sig (Normalized) Sig (Original) docusate sodium 100 mg oral capsule (2 sources) Start: 06-14-2021 End: 08-20-2021 take 1 capsule by mouth twice daily as needed for constipation docusate sodium (COLACE) 100 mg capsule Indications: Post-op pain , S/P section , state Take 1 capsule by mouth twice daily as needed for constipation. 30 capsule 0 06/14/2021 08/20/2021 Discontinued (Other) Comment on above: Take 1 capsule by mo [facility] twice daily as needed for constipation. ibuprofen 600 mg oral tablet (2 sources) Nonsteroidal Anti-inflammatory Drug Start: 06-14-2021 End: 08-20-2021 take 1 tablet by mouth every six hours as needed for pain ibuprofen (MOTRIN) 600 mg tablet Indications: Post-op pain , S/P section , state Take 1 tablet by mouth every 6 hours as needed for pain. FOR PAIN. 30 tablet 0 06/14/2021 08/20/2021 Discontinued (Other) Comment on above: Take 1 tablet by sammi every 6 hours as needed for pain. FOR PAIN. levonorgestrel 0.953097 mg/hr intrauterine system (5 sources) Progestin, Progestin-containi ng Intrauterine Device Start: 08-20-2021 End: 08-18-2028 levonorgestrel (MIRENA) 21 mcg/24 hours (8 yrs) 52 mg IUD Indications: Encounter for IUD insertion 1 Each by INTRAUTERINE route as directed. 1 Each 02/08/2023 Active Comment on above: 1 Each by INTRAUTERI NE route as directed. PNV95/FERROUS FUMARATE/FA ( ORAL) (5 sources) PNV95/FERROUS FUMARATE/FA ( ORAL) Take by mouth. Active PNV95/FERROUS FU MARATE/FA ( ORAL) Take by mouth. 0 Active Comment on above: Take by mouth. Completed/Discontinued Medications Medication Drug Class(es) Dates Sig (Normalized) Sig (Original) Multivitamins with FA 0.8 mg oral tablet (1 source) Start: 10-29-2020 End: 10-24-2021 take 1 tablet by mouth once daily Multivitamins with FA 0.8 mg oral tablet Dose = 1 tab(s), Oral, Daily, # 90 tab(s), 3 Refill(s), Pharmacy: [facility]/pharmacy #[id number], 167, cm, 10/29/20 9:58:00 EDT, Height, kg, 10/29/20 9:58:00 EDT, Dosing Weight Start Date: 10/29/20 Stop Date: 10/24/21 Status: Ordered Medication Dispense Status: Completed Quantity: 90.0 Unit: tab(s) Total Allowed Fills: 4 Fills Dispensed: 0 Problems Active Problems Problem Classification Problem Date Documented Date Episodic/Chronic Anxiety disorders (1 source) 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-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 Cardiac dysrhythmias (1 source) 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 Contraceptive and procreative management (4 sources) Patient encounter status; Translations: [Encounter for insertion of intrauterine contraceptive device] Episodic Immunizations and screening for infectious disease (10 sources) Antibody titer - finding; Translations: [Raised antibody titer] Onset: 04-19-2018 Resolved: 06-25-2021 11-30-2018 Episodic Malaise and fatigue (1 source) Fatigue 11-15-2019 Episodic Osteoarthritis (1 source) Osteoarthritis of left knee joint 09-18-2020 Chronic Comment on above: mild on xray 09/04 Other complications of (1 source) Spotting complicating , unspecified trimester; Translations: [Spotting in (HCC)] Onset: 02-16-2025 Episodic Other connective tissue disease (1 source) Plantar fasciitis 01-14-2024 Episodic Other non-traumatic joint disorders (2 sources) Knee pain 09-10-2020 Episodic Other nutritional; endocrine; and metabolic disorders (1 source) Obesity caused by energy imbalance; Translations: [Class 1 obesity due to excess calories without serious comorbidity with body mass index (BMI) of 32.0 to 32.9 in adult] 02-15-2024 Chronic Other nutritional; endocrine; and metabolic disorders (1 source) Body mass index 30+ - obesity 11-29-2024 Chronic Other nutritional; endocrine; and metabolic disorders (2 sources) Body mass index (BMI) 30.0-30.9, adult; Translations: [Body mass index [BMI] 30.0-30.9, adult] Onset: 01-01-2025 Chronic Other and delivery including normal (7 sources) care status; Translations: [Encounter for routine follow-up] Onset: 07-18-2015 Resolved: 03-27-2016 Episodic Other screening for suspected conditions (not mental disorders or infectious disease) (4 sources) Encounter for screening for diabetes mellitus; Translations: [Encounter for screening for lipoid disorders] Onset: 01-01-2025 Episodic Residual codes; unclassified (1 source) 13 weeks gestation of ; Translations: [13 weeks gestation of (HCC)] Onset: 03-12-2025 Episodic Residual codes; unclassified (1 source) 10 weeks gestation of ; Translations: [10 weeks gestation of (HCC)] Onset: 02-16-2025 Episodic Residual codes; unclassified (1 source) 8 weeks gestation of ; Translations: [8 weeks gestation of (HCC)] Onset: 02-08-2025 Episodic Past or Other Problems Problem Classification Problem Date Documented Date Episodic/Chronic Allergic reactions (3 sources) Contact dermatitis; Translations: [Unspecified contact dermatitis, unspecified cause] Onset: 11-22-2008 Resolved: 01-03-2015 01-03-2015 Episodic Diabetes or abnormal glucose tolerance complicating ; childbirth; or the puerperium (3 sources) Gestational diabetes mellitus; Translations: [Gestational diabetes mellitus in , diet controlled] Onset: 12-11-2015 Resolved: 06-25-2021 06-25-2021 Episodic Other complications of (3 sources) History of fourth degree perineal laceration; Translations: [Supervision of with other poor reproductive or obstetric history, unspecified trimester] Onset: 03-31-2018 Resolved: 11-30-2018 11-30-2018 Episodic Other complications of (3 sources) History of gestational diabetes mellitus; Translations: [Supervision of with other poor reproductive or obstetric history, unspecified trimester] Onset: 03-31-2018 Resolved: 04-22-2021 04-22-2021 Episodic Other complications of (3 sources) History of delivery of macrosomal infant; Translations: [Supervision of with other poor reproductive or obstetric history, unspecified trimester] Onset: 03-31-2018 Resolved: 06-25-2021 06-25-2021 Episodic Other complications of (3 sources) with isoimmunization; Translations: [Maternal care for Anti-A sensitization, third trimester, not applicable or unspecified] Onset: 12-26-2020 Resolved: 06-25-2021 06-25-2021 Episodic Other inflammatory condition of skin (3 sources) Pityriasis; Translations: [Seborrhea capitis] Onset: 11-22-2008 Resolved: 01-03-2015 01-03-2015 Episodic Other injuries and conditions due to external causes (3 sources) Open wound; Translations: [Other injury of unspecified body region, initial encounter] Onset: 10-09-2012 Resolved: 01-03-2015 01-03-2015 Episodic Other skin disorders (3 sources) Disorder of sebaceous gland; Translations: [Other specified follicular disorders] Onset: 11-22-2008 Resolved: 01-03-2015 01-03-2015 Episodic Other skin disorders (3 sources) Disorder of pigmentation; Translations: [Disorder of pigmentation, unspecified] Onset: 12-26-2008 Resolved: 01-03-2015 01-03-2015 Episodic Previous (3 sources) ; Translations: [Maternal care for unspecified type scar from previous delivery] Onset: 11-07-2020 Resolved: 06-25-2021 06-25-2021 Episodic Residual codes; unclassified (3 sources) History of hemorrhage; Translations: [Personal history of other complications of , childbirth and the puerperium] Onset: 03-31-2018 Resolved: 06-25-2021 06-25-2021 Episodic Residual codes; unclassified (3 sources) Family history of trisomy 18 syndrome; Translations: [Family history of other congenital malformations, deformations and chromosomal abnormalities] Onset: 03-31-2018 Resolved: 06-25-2021 06-25-2021 Episodic Screening and history of mental health and substance abuse codes (5 sources) H/O: anxiety state; Translations: [Personal history of other mental and behavioral disorders] Onset: 03-31-2018 11-07-2020 Episodic Viral infection (3 sources) Verruca vulgaris; Translations: [Viral wart, unspecified] Onset: 10-09-2012 Resolved: 07-16-2015 07-16-2015 Episodic Results Test Name Value Interpretation Reference Range Facility ABO TITER/ISOHEMAGGon 2024 ABO ANTIBODY TITER Titers to 4 Normal [facility] Comment on above: Order Comment: Speci men Type: SWAB Ordering Facility: [facility] Address: [address] [place] [address] [place], [place] [address] Result Comment: Anti body titered = c, E Performed By: #### T RVAMP, 69012-2 #### [facility] CLIA [id number] [address] [place] [address] [place] ANTIBODY ID PATIENTon 2024 ANTIBODY IDENTIFIED Detected Normal [facility] Comment on above: Order Comment: Speci men Type: SWAB Ordering Facility: [facility] Address: [address] [place] [address] Performed By: #### T RVAMP, 60263-6 #### [facility] CLIA [id number] [address] [place] [address] [place] BLOOD BANK PLACEHOLDER, ANTI BODY INTERPRETATIONon 03-12-2025 BLOOD BANK REPORT, ANTIBODY INTERPRETATION See Pathology Report Normal [facility] Comment on above: Order Comment: Speci men Type: SWAB Ordering Facility: [facility] Address: [address] [place] [address] Performed By: #### T RVAMP, 03382-2 #### [facility] CLIA [id number] [address] [place] [address] [place] BLOOD BANK REPORT, ANTIBODY INTERPRETATIONon 03-12-2025 PATHOLOGY INTERPRETATION Normal [facility] Comment on above: Order Comment: Speci men Type: BLOOD SPECIMEN Ordering Facility: [facility] Address: [address] [place] [address] Result Comment: Prev iously identified anti-E and anti-c are demonstrable. Titer result: 4. A titer of 16 or greater is generally considered critical based on data derived from studies of anti-D. Ongoing monitoring of antibody titers should be completed following ACOG recommendations. Titers may not be used to assess risk when there has been a history of a previously affected fetus or when levels have reached critical values. Approximately 18% of donor untis will be negative for the c and E antigens. When possible please allow a minimum of 4 to 6 hours for pretransfusion and compatibility testing. at 1355 EDT Performed By: #### B ALEX #### [facility] CLIA [id number] [address] [place] [address] [place] CBC panel Auto (Bld)on 03-12 Erythrocyte distribution width (RBC) [Ratio] 12.9 % Normal 11.5-15.0 [facility] Comment on above: Order Comment: Speci men Type: BLOOD SPECIMEN Ordering Facility: [facility] Address: [address] [place] [address] Performed By: #### 5 8410-2 #### [facility] CLIA [id number] [address] [place] [address] [place] Hematocrit (Bld) [Volume fraction] 36.9 % Normal 36.0-46.0 [facility] Comment on above: Order Comment: Speci men Type: BLOOD SPECIMEN Ordering Facility: [facility] Address: [address] [place] [address] Performed By: #### 5 8410-2 #### [id number] [address] [place] [address] [place] Hemoglobin (Bld) [Mass/Vol] 12.5 g/dL Normal 11.5-15.5 [facility] Comment on above: Order Comment: Speci men Type: BLOOD SPECIMEN Ordering Facility: [facility] Address: [address] [place] [address] Performed By: #### 5 8410-2 #### [facility] [id number] [address] [place] [address] [place] MCH (RBC) [Entitic mass] 29.6 pg Normal 26.0-34.0 [facility] Comment on above: Order Comment: Speci men Type: BLOOD SPECIMEN Ordering Facility: [facility] Address: [address] [place] [address] Performed By: #### 5 8410-2 #### [facility] [id number] [address] [place] [address] [place] MCHC (RBC) [Mass/Vol] 33.9 g/dL Normal 30.5-36.0 [facility] Comment on above: Order Comment: Speci men Type: BLOOD SPECIMEN Ordering Facility: [facility] Address: [address] [place] [address] Performed By: #### 5 8410-2 #### [facility] CLIA [id number] [address] [place] [address] [place] MCV (RBC) [Entitic vol] 87.2 fL Normal 80.0-100.0 [facility] Comment on above: Order Comment: Speci men Type: BLOOD SPECIMEN Ordering Facility: [facility] Address: [address] [place] [address] Performed By: #### 5 8410-2 #### [facility] CLIA [id number] [address] [place] [address] [place] Nucleated RBC (Bld) [#/Vol] 10*3/uL Normal <0.01 [facility] Comment on above: Order Comment: Speci men Type: BLOOD SPECIMEN Ordering Facility: [facility] Address: [address] [place] [address] Performed By: #### 5 8410-2 #### [facility] CLIA [id number] [address] [place] [address] [place] Platelet mean volume (Bld) [Entitic vol] 11.2 fL Normal 9.0-12.7 [facility] Comment on above: Order Comment: Speci men Type: BLOOD SPECIMEN Ordering Facility: [facility] Address: [address] [place] [address] Performed By: #### 5 8410-2 #### [facility] CLIA [id number] [address] [place] [address] [place] Platelets (Bld) [#/Vol] 245 10*3/uL Normal 150-400 [facility] Comment on above: Order Comment: Speci men Type: BLOOD SPECIMEN Ordering Facility: [facility] Address: [address] [place] [address] Performed By: #### 5 8410-2 #### [facility] CLIA [id number] [address] [place] [address] [place] RBC (Bld) [#/Vol] 4.23 10*6/uL Normal 3.90-5.20 [facility] Comment on above: Order Comment: Speci men Type: BLOOD SPECIMEN Ordering Facility: [facility] Address: [address] [place] [address] Performed By: #### 5 8410-2 #### [facility] CLIA [id number] [address] [place] [address] [place] WBC (Bld) [#/Vol] 7.31 10*3/uL Normal 3.70-11.00 [facility] Comment on above: Order Comment: Speci men Type: BLOOD SPECIMEN Ordering Facility: [facility] Address: [address] [place] [address] Performed By: #### 5 8410-2 #### [facility] CLIA [id number] [address] [place] [address] [place] SONIA DIRECTon 03-12-2025 DAGT, POLYSPECIFIC AHG Negative Normal [facility] Comment on above: Order Comment: Speci men Type: SWAB Ordering Facility: [facility] Address: [address] [place] [address] Performed By: #### T RVAMP, 29425-4 #### [facility] CLIA [id number] [address] [place] [address] [place] HBV surface Ag Ser Qlon 10- HBV surface Ag Ql (S) Negative Normal Negative [facility] Comment on above: Order Comment: Speci men Type: BLOOD SPECIMEN Ordering Facility: [facility] Address: [address] [place] [address] Performed By: #### 5 195-3, 53199-3, 48348-3 #### [facility] CLIA [id number] [address] [place] [address] [place] HCV Ab Ser Qlon 03-12-2025 HCV Ab Ql (S) Negative Normal Negative [facility] Comment on above: Order Comment: Speci men Type: BLOOD SPECIMEN Ordering Facility: [facility] Address: [address] [place] [address] Result Comment: The result suggests no evidence of infection with Hepatitis C virus. Should recent infection be suspected, repeat testing may be considered 4-6 weeks after this draw. Performed By: #### 1 6128-1 #### [facility] CLIA [id number] [address] [place] [address] [place] HIV 1+2 Ab IA Qlon HIV 1 and 2 Ab IA.rapid Nom (S/P/Bld) Normal [facility] Comment on above: Order Comment: Speci men Type: BLOOD SPECIMEN Ordering Facility: [facility] Address: [address] [place] [address] Result Comment: Test not indicated. Performed By: #### 5 195-3, 59353-1, 92091-7 #### [facility] CLIA [id number] [address] [place] [address] [place] HIV 1+2 Ab+HIV1 p24 Ag IA Ql Non-Reactive Normal Nonreactive [facility] Comment on above: Order Comment: Speci men Type: BLOOD SPECIMEN Ordering Facility: [facility] Address: [address] [place] [address] Performed By: #### 5 195-3, 29097-2, 71387-7 #### [facility] CLIA [id number] [address] [place] [address] [place] HIV immunoassay testing algorithm interpretation (S/P/Bld) [Interp] Normal [facility] Comment on above: Order Comment: Speci men Type: BLOOD SPECIMEN Ordering Facility: [facility] Address: [address] [place] [address] Result Comment: No e vidence of HIV-1 or HIV-2 infection. Should recent infection be suspected, repeat testing may be considered 2-3 weeks after this draw. [place] Rev. Code 3701.243(E): This information has been disclosed to you from confidential records protected from disclosure by state law. You shall make no further disclosure of this information without the specific, written, and informed release of the individual to whom it pertains or as otherwise permitted by state law. A general authorization for the release of medical or other information is not sufficient for the purpose of the release of HIV test results or diagnoses. Performed By: #### 5 195-3, 25656-6, 40879-4 #### [facility] CLIA [id number] [address] [place] [address] [place] HbA1c (Bld)on 03-12-2025 Average glucose Estimated from glycated hemoglobin (Bld) [Mass/Vol] 91 mg/dL Normal [facility] Comment on above: Order Comment: Speci men Type: BLOOD SPECIMEN Ordering Facility: [facility] Address: [address] [place] [address] Result Comment: eAG: (Estimated average glucose) is a calculated value from HgbA1c and is pest control service representative of the average blood glucose level in the last 2-3 month period. Performed By: #### 5 5454-3 #### [facility] CLIA [id number] [address] [place] [address] [place] HbA1c (Bld) [Mass fraction] 4.8 % Normal 4.3-5.6 [facility] Comment on above: Order Comment: Speci men Type: BLOOD SPECIMEN Ordering Facility: [facility] Address: [address] [place] [address] Result Comment: [place] Diabetes Association guidelines indicate that patients with HgbA1c in the range 5.7-6.4% are at increased risk for development of diabetes, and intervention by lifestyle modification may be beneficial. HgbA1c greater or equal to 6.5% is considered diagnostic of diabetes. Performed By: #### 5 5454-3 #### [facility] CLIA [id number] [address] [place] [address] [place] RUBELLA IGG ANTIBODYon 03-12 RUBELLA IGG AB, QUAL Positive Normal Positive [facility] Comment on above: Order Comment: Servando castañeda Type: BLOOD SPECIMEN Ordering Facility: [facility] Address: [address] [place] [address] Result Comment: The result suggests recent or past exposure to Rubella virus or history of Rubella vaccination. Positive result may also be seen due to presence of passively-transferred antibodies. Please correlate with patient's history. Performed By: #### R UBIGG #### [facility] CLIA [id number] [address] [place] [address] [place] Reagin and Treponema pallidu m IgG and IgM [Interp]on 03-12-2025 T. pallidum IgG+IgM IA Ql (S) Non-Reactive Normal Nonreactive [facility] Comment on above: Order Comment: Richiei maddy Type: BLOOD SPECIMEN Ordering Facility: [facility] Address: [address] [place] [address] Performed By: #### 5 195-3, 78002-9, 12951-5 #### [facility] CLIA [id number] [address] [place] [address] [place] Reagin+T pallidum IgG+IgM Se rPl-Impon 03-12-2025 Reagin and Treponema pallidum IgG and IgM [Interp] Cannot exclude recent Treponemal infection if specimen collected within 7-10 days after appearance of suspect lesions or 2-3 weeks after an exposure. Clinical correlation is required. Normal [facility] Comment on above: Order Comment: Richiei maddy Type: BLOOD SPECIMEN Ordering Facility: [facility] Address: [address] [place] [address] Performed By: #### 5 195-3, 02708-9, 46976-5 #### [facility] CLIA [id number] [address] [place] [address] [place] TYPE + SCREEN PRENATALon ABO O Normal [facility] Comment on above: Order Comment: Speci men Type: SWAB Ordering Facility: [facility] Address: [address] [place] [address] Performed By: #### T RVAMP, 40150-6 #### [facility] CLIA [id number] [address] [place] [address] [place] Rh Nom (Bld) Positive Normal [facility] Comment on above: Order Comment: Speci men Type: SWAB Ordering Facility: [facility] Address: [address] [place] [address] Performed By: #### T RVAMP, 19138-0 #### [facility] CLIA [id number] [address] [place] [address] [place] [facility] TYPE AND SCREEN EXPIRATION 03/15/2025 23:59 Normal [facility] Comment on above: Order Comment: Speci men Type: SWAB Ordering Facility: [facility] Address: [address] [place] [address] Performed By: #### T RVAMP, 33496-3 #### [facility] CLIA [id number] [address] [place] [address] [place] Bacteria Ur Culton Bacteria identified Cx Nom (U) ORGANISM ID: 1 50,000-<100,000 CFU/ml Normal urogenital swapna Normal [facility] Comment on above: Performed By: #### T RVAMP, 89385-9 #### [facility] CLIA [id number] [address] [place] [address] [place] C. trachomatis+N. gonorrhoea e DNA PRIYANKA+probe Ql (Unsp spec)on 02-08-2025 C. trachomatis rRNA PRIYANKA+probe Ql (Unsp spec) Not detected Normal Not detected [facility] Comment on above: Order Comment: Speci men Type: SWAB Ordering Facility: [facility] Address: [address] [place] [address] Performed By: #### T RVAMP, 58658-2 #### [facility] CLIA [id number] [address] [place] [address] [place] N. gonorrhoeae rRNA PRIYANKA+probe Ql (Unsp spec) Not detected Normal Not detected [facility] Comment on above: Order Comment: Speci men Type: SWAB Ordering Facility: [facility] Address: [address] [place] [address] Performed By: #### T RVAMP, 93815-7 #### [facility] CLIA [id number] [address] [place] [address] [place] TRICHOMONAS VAGINALIS NAATon 02-08-2025 T. vaginalis DNA PRIYANKA+probe Ql (Unsp spec) Not detected Normal Not detected [facility] Comment on above: Order Comment: Speci men Type: SWAB Ordering Facility: [facility] Address: [address] [place] [address] Performed By: #### T RVAMP, 54411-4 #### [facility] CLIA [id number] [address] [place] [address] [place] GLUon 01-01-2025 Glucose [Mass/Vol] 98 mg/dL Normal 70-105 [facility] Comment on above: Performed By: #### H CV1 #### [address] [address] #### GLU, LIPID #### [address] [address] HCVon 01-01-2025 Hep C Ab Non-Reactive Normal Non-Reactive [facility] Comment on above: Performed By: #### H CV1 #### [address] [address] #### GLU, LIPID #### [address] [address] Hep C Ab Int See Interp Normal [facility] Comment on above: Result Comment: Clinical Interpretation: Nonreactive: Samples with a value < 0.80 are considered nonreactive (negative) for antibodies to HCV. A negative test result does not exclude the possibility of exposure to or infection with HCV. HCV antibodies may be undetectable in some stages of the infection and in some clinical conditions. Performed By: #### H CV1 #### [address] [address] #### GLU, LIPID #### [place] [address] [place], [place] [address] LABORATORYOrdered By: Ismael Lafleur on 01-01-2025 Cholesterol [Mass/Vol] 155 mg/dL Normal 0 - 200 mg/dL AO ADM SS Comment on above: Interpretive Data: C holesterol Reference Interval: Less than 200 Desirable 200-239 Borderline high risk 240 and above High risk Cholesterol in HDL [Mass/Vol] 41 mg/dL Normal 40 - 60 mg/dL AO ADM SS Cholesterol in LDL [Mass/Vol] 97 mg/dL Normal 0 - 130 mg/dL AO ADM SS Triglyceride [Mass/Vol] 86 mg/dL Normal 0 - 150 mg/dL AO ADM SS Comment on above: Interpretive Data: T riglyceride Reference Interval: Less than 150 Normal 150-199 Borderline high risk 200-499 High risk 500 or higher Very high risk LABORATORYOrdered By: SYSTEM SYSTEM on 01-01-2025 Glucose [Mass/Vol] 98 mg/dL Normal 70 - 105 mg/dL AO ADM SS LABORATORYOrdered By: Marv thomas on 01-01-2025 HCV Ab IA Ql Non-Reactive (01/01/25 1:37 PM) Normal Non-Reactive ADM SS HCV Ab IA Ql See Interp 3 *NA* (01/01/25 1:37 PM) Invalid Interpretation Code Chemistry S Comment on above: Result Comment: Clinical Interpretation: Nonreactive: Samples with a value < 0.80 are considered nonreactive (negative) for antibodies to HCV. A negative test result does not exclude the possibility of exposure to or infection with HCV. HCV antibodies may be undetectable in some stages of the infection and in some clinical conditions. LIPIDon 01-01-2025 Cholesterol [Mass/Vol] 155 mg/dL Normal 0-200 [facility] Comment on above: Result Comment: Chol esterol Reference Interval: Less than 200 Desirable 200-239 Borderline high risk 240 and above High risk Performed By: #### H CV1 #### [address] [address] #### GLU, LIPID #### [address] [address] Cholesterol in HDL [Mass/Vol] 41 mg/dL Normal 40-60 [facility] Comment on above: Performed By: #### H CV1 #### [place] [address] #### GLU, LIPID #### [address] [address] Cholesterol in LDL [Mass/Vol] 97 mg/dL Normal 0-130 [facility] Comment on above: Performed By: #### H CV1 #### [place] [address] #### GLU, LIPID #### [place] [address] [place], [place] [address] Triglyceride [Mass/Vol] 86 mg/dL Normal 0-150 [facility] Comment on above: Result Comment: Trig lyceride Reference Interval: Less than 150 Normal 150-199 Borderline high risk 200-499 High risk 500 or higher Very high risk Performed By: #### H CV1 #### [place] [address] #### GLU, LIPID #### [address] [address] CNOVon 07-17-2024 CNOV Office Visit (OBGYWM) ---- ROSIE BRADFORD ([id number]) 1990 F Date Time Provider Department 07/17/24 11:10 AM SARA JACKSON OBELIWNorberto During your visit today, we recorded the following information about you: Blood pressure Weight 122/74 90.3 kg Sara Jackson MD 07/17/2024 11:23 AM Signed Rosie presents for removal of IUD due to considering . UNIVERSAL PROTOCOL / SAFETY CHECKLIST Procedure to be Performed: IUD removal Sign In: A Moment of CARE was completed. Appropriate PPE (Personal Protective Equipment) worn by all providers involved with the procedure. Special equipment not required. Patient/Surrogate Stated/Verified: Patient name, Date of , Relevant allergies, and The intended procedure Time Out: Relevant labs, photos, and/or imaging studies have been reviewed. Intended patient and procedure match the source document(s) (e.g. consent, HANDP, associated studies [imaging, pathology]) are not applicable. Consent obtained and matches the intended procedure. Yes. Correct side/site is not applicable. Medications required for this procedure are not applicable. Fire risk assessed and is not applicable. Implants: are not applicable. Sign Out: Specimens not collected. All instruments, equipment, possible retained foreign bodies are accounted for. Yes. The post-procedure plan of care has been communicated to the patient or surrogate. PROCEDURE: Speculum placed in vagina, IUD string visualized and grasped with ring forceps. ASSESSMENT/PLAN: IUD removed without difficulty, intact, and patient tolerated procedure well. Contraception plans: Mirena IUD Reviewed pre-conception guidelines including folic acid supplementation, optimal timing of intercourse, avoidance of smoking, alcohol, exposure to environmental chemicals and need for evaluation if not within 12 months. Sara Jackson MD Referring Provider: SARA JACKSON [[id number]] Allergies As of Date: 07/17/2024 Noted Allergy Reaction SULFA (SULFONAMIDE ANTIBIOTICS) 11/22/2008 Date Reviewed: 07/17/2024 Reviewed by: Sara Jackson MD - Fully Assessed Reason for Visit: IUD Removal [1950] Primary Visit Diagnosis:Encounter for IUD removal [Z30.432] Prescriptions as of 07/17/2024 - levonorgestrel (MIRENA) 21 mcg/24 hours (8 yrs) 52 mg IUD 1 Each by INTRAUTERINE route as directed. - PNV95/FERROUS FUMARATE/FA ( ORAL) Take by mouth. 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] 11/22/2008 01/03/2015 HYPOPIGMENTATION/// DYSCHROMIA UNSPECIFIED [L81.*12/26/2008 01/03/2015 Viral Wart: Verruca Vulgaris: HPV wart left lo*10/09/2012 07/16/2015 Open wound(of L lower lip priya border, wi*10/09/2012 01/03/2015 Encounter for supervision of normal first pregn*07/18/2015 03/27/2016 Diet controlled gestational diabetes mellitus (*12/11/2015 06/25/2021 History of maternal fourth degree perineal lace*03/31/2018 11/30/2018 History of hemorrhage [Z87.59] 03/31/2018 06/25/2021 History of gestational diabetes in prior pregna*03/31/2018 04/22/2021 History of macrosomia in infant in prior pregna*03/31/2018 06/25/2021 History of anxiety [Z86.59] 03/31/2018 Family history of trisomy 18 [Z82.79] 03/31/2018 06/25/2021 Abnormal antibody titer [R76.0] 04/19/2018 11/30/2018 with history of section, ant*11/07/2020 06/25/2021 Isoimmunization from blood group incompatibilit*12/1506/25/2021 Red blood cell antibody positive [R76.8] 02/24/2021 06/25/2021 Encounter Status:Closed by SARA JACKSON on 07/17/24 [facility] Lori 06-02-2024 CNPN Telephone (OBGYWM) ---- ROSIE BRADFORD ([id number]) 1990 F Date Time Provider Department 06/02/24 SARA JACKSON OBGYWM During your visit today, we recorded the following information about you: Mae Rios RN 06/02/2024 3:50 PM Signed Patient would like IUD removed. Order pending. Please file so that it can be attached to her upcoming appointment. Mae Rios RN Allergies As of Date: 06/02/2024 Noted Allergy Reaction SULFA (SULFONAMIDE ANTIBIOTICS) 11/22/2008 Date Reviewed: 02/15/2024 Reviewed by: Sara Jackson MD - Fully Assessed Reason for Visit: Orders [681] Primary Visit Diagnosis:Encounter for IUD removal [Z30.432] Order(s):REMOVE INTRAUTERINE DEVICE [[id number]] Order #: [id number] Prescriptions as of 06/02/2024 - levonorgestrel (MIRENA) 21 mcg/24 hours (8 yrs) 52 mg IUD 1 Each by INTRAUTERINE route as directed. - PNV95/FERROUS FUMARATE/FA ( ORAL) Take by mouth. 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] 11/22/2008 01/03/2015 HYPOPIGMENTATION/// DYSCHROMIA UNSPECIFIED [L81.*12/26/2008 01/03/2015 Viral Wart: Verruca Vulgaris: HPV wart left lo*10/09/2012 07/16/2015 Open wound(of L lower lip priya border, wi*10/09/2012 01/03/2015 Encounter for supervision of normal first pregn*07/18/2015 03/27/2016 Diet controlled gestational diabetes mellitus (*12/11/2015 06/25/2021 History of maternal fourth degree perineal lace*03/31/2018 11/30/2018 History of hemorrhage [Z87.59] 03/31/2018 06/25/2021 History of gestational diabetes in prior pregna*03/31/2018 04/22/2021 History of macrosomia in infant in prior pregna*03/31/2018 06/25/2021 History of anxiety [Z86.59] 03/31/2018 Family history of trisomy 18 [Z82.79] 03/31/2018 06/25/2021 Abnormal antibody titer [R76.0] 04/19/2018 11/30/2018 with history of section, ant*11/07/2020 06/25/2021 Isoimmunization from blood group incompatibilit*12/1506/25/2021 Red blood cell antibody positive [R76.8] 02/24/2021 06/25/2021 Encounter Status:Closed by MAE IROS on 06/02/24 Normal [facility] HCG QUAL UR B/Oon 08-20-2021 status Negative neg - [facility] Quality Check Yes [facility] Bedside Glucoseon 06-13-2021 FINGERSTICK GLU 86 mg/dL Normal 70-110 [facility] Comment on above: Result Comment: TOREY PENDLETON OF PATIENT CARE PER NURSING PROTOCOL Performed By: #### L 300.3900, L300.4310 #### [facility] [address] [place], [address] CBC-Complete Blood Cnt No Di ffon 06-13-2021 Erythrocyte distribution width (RBC) [Ratio] 14.5 % Normal 11.6-14.6 [facility] Comment on above: Order Comment: Comme nts: Day #1Reason for Laboratory Test Performed By: #### L 300.3900, L300.4310 #### [facility] [address] [place], [address] Hematocrit (Bld) [Volume fraction] 28.6 % Low 37-47 [facility] Comment on above: Order Comment: Comme nts: Day #1Reason for Laboratory Test Performed By: #### L 300.3900, L300.4310 #### [facility] [address] [place], [address] Hemoglobin (Bld) [Mass/Vol] 9.1 g/dL Low 12.0-15.0 [facility] Comment on above: Order Comment: Comme nts: Day #1Reason for Laboratory Test Performed By: #### L 300.3900, L300.4310 #### [facility] [address] [place], [address] MCH (RBC) [Entitic mass] 26.8 pg Low 27.0-32.0 [facility] Comment on above: Order Comment: Comme nts: Day #1Reason for Laboratory Test Performed By: #### L 300.3900, L300.4310 #### [facility] [address] [place], [address] MCHC (RBC) [Mass/Vol] 31.8 g/dL Low 32-36 [facility] Comment on above: Order Comment: Comme nts: Day #1Reason for Laboratory Test Performed By: #### L 300.3900, L300.4310 #### [facility] [address] [place], [address] MCV (RBC) [Entitic vol] 84.4 fL Normal 81-99 [facility] Comment on above: Order Comment: Comme nts: Day #1Reason for Laboratory Test Performed By: #### L 300.3900, L300.4310 #### [facility] [address] [place], [address] Platelet mean volume (Bld) [Entitic vol] 10.8 fL Normal 6.2-12.0 [facility] Comment on above: Order Comment: Comme nts: Day #1Reason for Laboratory Test Performed By: #### L 300.3900, L300.4310 #### [facility] [address] [place], [address] Platelets (Bld) [#/Vol] 245 10*3/uL Normal 150-450 [facility] Comment on above: Order Comment: Comme nts: Day #1Reason for Laboratory Test Performed By: #### L 300.3900, L300.4310 #### [facility] [address] [place], [address] RBC (Bld) [#/Vol] 3.39 10*6/uL Low 4.2-5.4 [facility] Comment on above: Order Comment: Comme nts: Day #1Reason for Laboratory Test Performed By: #### L 300.3900, L300.4310 #### [facility] [address] [place], [address] RDW SD 43.8 fl Normal 35.1-43.9 [facility] Comment on above: Order Comment: Comme nts: Day #1Reason for Laboratory Test Performed By: #### L 300.3900, L300.4310 #### [facility] [address] [place], [address] WBC (Bld) [#/Vol] 11.0 10*3/uL Normal 4.4-11.0 [facility] Comment on above: Order Comment: Comme nts: Day #1Reason for Laboratory Test Performed By: #### L 300.3900, L300.4310 #### [facility] [address] [place], [address] Antibody Panel IDon 06-12-19 22 ANTIBODY ID Normal [facility] Comment on above: Order Comment: S Result Comment: E LC Performed By: #### L 100.0100, BPAN, BTS #### [facility] [address] [place], [address] Antigen E Gammacloneon 06-12 ANTIGEN ID Negative Normal [facility] Comment on above: Performed By: #### L 300.3900, L300.4310 #### [facility] [address] [place], [address] Antigen Little c Series 1on 06-12-2021 AG +10 MIN @ 37 PENDING Normal [facility] Comment on above: Performed By: #### B AGLC #### [facility] [address] [place], [address] BRCon 06-12-2021 RC Normal [facility] Comment on above: Result Comment: [id number] OP RC XM COMPATIBLE [id number] OP RC XM COMPATIBLE Performed By: #### L 300.3900, L300.4310 #### [facility] [address] [place], [address] Bedside Glucoseon 06-12-2021 FINGERSTICK GLU 80 mg/dL Normal 70-110 [facility] Comment on above: Result Comment: TOREY GEMENT OF PATIENT CARE PER NURSING PROTOCOL Performed By: #### L 501.080 #### [facility] [address] [place], [address] FINGERSTICK GLU 77 mg/dL Normal 70-110 [facility] Comment on above: Result Comment: TOREY GEMENT OF PATIENT CARE PER NURSING PROTOCOL Performed By: #### L 501.080 #### [facility] [address] [place], [address] CBC W/Diff, Automatedon 05-18 Absolute Lymph 0.75 X10 3/uL Low 0.83-4.51 [facility] Comment on above: Performed By: #### L 100.0100 #### [facility] [address] [place], [address] Absolute Neut 8.5 X10 3/uL High 2.0-7.7 [facility] Comment on above: Performed By: #### L 100.0100 #### [facility] [address] [place], [address] Basophils/100 WBC (Bld) 0.2 % Normal 0-1 [facility] Comment on above: Performed By: #### L 100.0100 #### [facility] [address] [place], [address] Eosinophils/100 WBC (Bld) 0.1 % Normal 0-5 [facility] Comment on above: Performed By: #### L 100.0100 #### [facility] [address] [place], [address] Erythrocyte distribution width (RBC) [Ratio] 14.4 % Normal 11.6-14.6 [facility] Comment on above: Performed By: #### L 100.0100 #### [facility] [address] [place], [address] Hematocrit (Bld) [Volume fraction] 30.8 % Low 37-47 [facility] Comment on above: Performed By: #### L 100.0100 #### [facility] [address] [place], [address] Hemoglobin (Bld) [Mass/Vol] 10.1 g/dL Low 12.0-15.0 [facility] Comment on above: Performed By: #### L 100.0100 #### [facility] [address] [place], [address] IG% 1.200 High 0.0-0.9 [facility] Comment on above: Result Comment: IG% - Immature Granulocytes (promyelocytes, myelocytes and metamyelocytes) > 1% indicates that a LEFT SHIFT is Present. Performed By: #### L 100.0100 #### [facility] [address] [place], [address] Lymphocytes/100 WBC (Bld) 7.8 % Low 19-41 [facility] Comment on above: Performed By: #### L 100.0100 #### [facility] [address] [place], [address] MCH (RBC) [Entitic mass] 27.2 pg Normal 27.0-32.0 [facility] Comment on above: Performed By: #### L 100.0100 #### [facility] [address] [place], [address] MCHC (RBC) [Mass/Vol] 32.8 g/dL Normal 32-36 [facility] Comment on above: Performed By: #### L 100.0100 #### [facility] [address] [place], [address] MCV (RBC) [Entitic vol] 82.8 fL Normal 81-99 [facility] Comment on above: Performed By: #### L 100.0100 #### [facility] [address] [place], [address] Monocytes/100 WBC (Bld) 2.3 % Normal 0-10 [facility] Comment on above: Performed By: #### L 100.0100 #### [facility] [address] [place], [address] Neutrophils/100 WBC (Bld) 88.4 % High 47-70 [facility] Comment on above: Performed By: #### L 100.0100 #### [facility] [address] [place], [address] Nucleated RBC (Bld) [#/Vol] 0 10*3/uL Normal 0-5 [facility] Comment on above: Performed By: #### L 100.0100 #### [facility] [address] [place], [address] Platelet mean volume (Bld) [Entitic vol] 10.6 fL Normal 6.2-12.0 [facility] Comment on above: Performed By: #### L 100.0100 #### [facility] [address] [place], [address] Platelets (Bld) [#/Vol] 234 10*3/uL Normal 150-450 [facility] Comment on above: Performed By: #### L 100.0100 #### [facility] [address] [place], [address] RBC (Bld) [#/Vol] 3.72 10*6/uL Low 4.2-5.4 [facility] Comment on above: Performed By: #### L 100.0100 #### [facility] [address] [place], [address] RDW SD 42.6 fl Normal 35.1-43.9 [facility] Comment on above: Performed By: #### L 100.0100 #### [facility] [address] [place], [address] WBC (Bld) [#/Vol] 9.7 10*3/uL Normal 4.4-11.0 [facility] Comment on above: Performed By: #### L 100.0100 #### [facility] [address] [place], [address] Absolute Lymph 1.15 X10 3/uL Normal 0.83-4.51 [facility] Comment on above: Performed By: #### L 100.0100, BPAN, BTS #### [facility] [address] [place], [address] Absolute Neut 4.7 X10 3/uL Normal 2.0-7.7 [facility] Comment on above: Performed By: #### L 100.0100, BPAN, BTS #### [facility] [address] [place], [address] Basophils/100 WBC (Bld) 0.5 % Normal 0-1 [facility] Comment on above: Performed By: #### L 100.0100, BPAN, BTS #### [facility] [address] [place], [address] Eosinophils/100 WBC (Bld) 1.2 % Normal 0-5 [facility] Comment on above: Performed By: #### L 100.0100, BPAN, BTS #### [facility] [address] [place], [address] Erythrocyte distribution width (RBC) [Ratio] 14.5 % Normal 11.6-14.6 [facility] Comment on above: Performed By: #### L 100.0100, BPAN, BTS #### [facility] [address] [place], [address] Hematocrit (Bld) [Volume fraction] 28.8 % Low 37-47 [facility] Comment on above: Performed By: #### L 100.0100, BPAN, BTS #### [facility] [address] [place], [address] Hemoglobin (Bld) [Mass/Vol] 9.4 g/dL Low 12.0-15.0 [facility] Comment on above: Performed By: #### L 100.0100, BPAN, BTS #### [facility] [address] [place], [address] IG% 1.800 High 0.0-0.9 [facility] Comment on above: Result Comment: IG% - Immature Granulocytes (promyelocytes, myelocytes and metamyelocytes) > 1% indicates that a LEFT SHIFT is Present. Performed By: #### L 100.0100, BPAN, BTS #### [facility] [address] [place], [address] Lymphocytes/100 WBC (Bld) 17.3 % Low 19-41 [facility] Comment on above: Performed By: #### L 100.0100, BPAN, BTS #### [facility] [address] [place], [address] MCH (RBC) [Entitic mass] 27.3 pg Normal 27.0-32.0 [facility] Comment on above: Performed By: #### L 100.0100, BPAN, BTS #### [facility] [address] [place], [address] MCHC (RBC) [Mass/Vol] 32.6 g/dL Normal 32-36 [facility] Comment on above: Performed By: #### L 100.0100, BPAN, BTS #### [facility] [address] [place], [address] MCV (RBC) [Entitic vol] 83.7 fL Normal 81-99 [facility] Comment on above: Performed By: #### L 100.0100, BPAN, BTS #### [facility] [address] [place], [address] Monocytes/100 WBC (Bld) 8.7 % Normal 0-10 [facility] Comment on above: Performed By: #### L 100.0100, BPAN, BTS #### [facility] [address] [place], [address] Neutrophils/100 WBC (Bld) 70.5 % High 47-70 [facility] Comment on above: Performed By: #### L 100.0100, BPAN, BTS #### [facility] [address] [place], [address] Nucleated RBC (Bld) [#/Vol] 0 10*3/uL Normal 0-5 [facility] Comment on above: Performed By: #### L 100.0100, BPAN, BTS #### [facility] [address] [place], [address] Platelet mean volume (Bld) [Entitic vol] 10.3 fL Normal 6.2-12.0 [facility] Comment on above: Performed By: #### L 100.0100, BPAN, BTS #### [facility] [address] [place], [address] Platelets (Bld) [#/Vol] 212 10*3/uL Normal 150-450 [facility] Comment on above: Performed By: #### L 100.0100, BPAN, BTS #### [facility] [address] [place], [address] RBC (Bld) [#/Vol] 3.44 10*6/uL Low 4.2-5.4 [facility] Comment on above: Performed By: #### L 100.0100, BPAN, BTS #### [facility] [address] [place], [address] RDW SD 43.5 fl Normal 35.1-43.9 [facility] Comment on above: Performed By: #### L 100.0100, BPATatyana BTS #### [facility] [address] [place], [address] WBC (Bld) [#/Vol] 6.7 10*3/uL Normal 4.4-11.0 [facility] Comment on above: Performed By: #### L 100.0100, BPATatyana BTS #### [facility] [address] [place], [address] CBC-Complete Blood Cnt No Di ffon 06-12-2021 Erythrocyte distribution width (RBC) [Ratio] 14.4 % Normal 11.6-14.6 [facility] Comment on above: Performed By: #### L 100.0500 #### [facility] [address] [place], [address] Hematocrit (Bld) [Volume fraction] 28.5 % Low 37-47 [facility] Comment on above: Performed By: #### L 100.0500 #### [facility] [address] [place], [address] Hemoglobin (Bld) [Mass/Vol] 9.4 g/dL Low 12.0-15.0 [facility] Comment on above: Performed By: #### L 100.0500 #### [facility] [address] [place], [address] MCH (RBC) [Entitic mass] 27.2 pg Normal 27.0-32.0 [facility] Comment on above: Performed By: #### L 100.0500 #### [facility] [address] [place], [address] MCHC (RBC) [Mass/Vol] 33.0 g/dL Normal 32-36 [facility] Comment on above: Performed By: #### L 100.0500 #### [facility] [address] [place], [address] MCV (RBC) [Entitic vol] 82.6 fL Normal 81-99 [facility] Comment on above: Performed By: #### L 100.0500 #### [facility] [address] [place], [address] Platelet mean volume (Bld) [Entitic vol] 10.7 fL Normal 6.2-12.0 [facility] Comment on above: Performed By: #### L 100.0500 #### [facility] [address] [place], [address] Platelets (Bld) [#/Vol] 234 10*3/uL Normal 150-450 [facility] Comment on above: Performed By: #### L 100.0500 #### [facility] [address] [place], [address] RBC (Bld) [#/Vol] 3.45 10*6/uL Low 4.2-5.4 [facility] Comment on above: Performed By: #### L 100.0500 #### [facility] [address] [place], [address] RDW SD 42.5 fl Normal 35.1-43.9 [facility] Comment on above: Performed By: #### L 100.0500 #### [facility] [address] [place], [address] WBC (Bld) [#/Vol] 13.4 10*3/uL High 4.4-11.0 [facility] Comment on above: Performed By: #### L 100.0500 #### [facility] [address] [place], [address] COVID 19 AG RAPID (RN COLLEC T)on 06-12-2021 SARS-CoV-2 (COVID-19) RNA PRIYANKA+probe Ql (Unsp spec) *Negative results from patients with symptom onset beyond five days should be treated as presumptive and confirmed by a molecular assay if clinically necessary. Negative results should not be used as the sole basis for treatment or for patient management. COVID 19 AG RAPID (RN COLLECT) *Positive results do not differentiate between SARS-CoV and SARS-CoV-2. If differentation of the specific SARS virus is desired an additional sample and an additional order is required. COVID 19 AG RAPID (RN COLLECT) * This test has not been FDA cleared or approved; the test has been authorized by FDA under an Emergency Use Authorization (EAU) for use by laboratories certified under CLIA that meet the requirements to perform moderate, high, or waived complexity tests. COVID 19 AG RAPID (RN COLLECT) Normal Reference Range: Negative SARS-CoV-2 (COVID 19) Negative RAPID METHOD Quidel Terri Analyzer OSMAN Normal [facility] Comment on above: Performed By: #### L 300.3900, L300.4310 #### [facility] [address] [place], [address] H AND P Exam - OB/GYNon 05-18 H&P Exam - ORIENTAL MEDICINE PRACTITIONER [facility] Medical Records Department [address] [place] [address] H P Exam - ORIENTAL MEDICINE PRACTITIONER 06/12/21 1202 MR#: [id number] Acct: [id number] Name: ROSIE BRADFORD Rep #: [id number] : 1990 31 From: Sara Jackson MD PCP: Dr. Marsha Goldman, DO Status:ADM IN Location: [id number] HPI - General General Date of Admission: 06/12/21 Date of Service: 06/12/21 HPI Narrative ROSIE BRADFORD, is a 31 3 para 2 with EDC of Jul 02, 2021 presents for repeat section. 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 Her antepartum testing has been reassuring. Admits he was complicated to date by gestational diabetes that is been well controlled. In addition she had Covid early in the third trimester. Maternal Data Information Final ERIC: 07/02/21 Gestational age: 37 1/7 [facility] Medical History (Updated 06/12/21 @ 12:[address] 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 Sara Jackson MD) History of history removal wisdom teeth Social History (Updated 03/10/19 @ 17:[address] Mercedes Croft MD) Smoking Status: Never smoker alcohol intake: never substance use type: does not use History Elective abortions Hx Para 2 Spontaneous abortions Hx # Term Pregnancies Ectopic pregnancies Hx # Pregnancies Multiple births # of living children ROS Constitutional Constitutional: Denies fatigue, fever(s) or malaise Eyes Eyes: Denies change in vision ENT HEENT: Denies dizziness or headache(s) Cardiovascular Cardiovascular: Denies chest pain, dyspnea or lightheadedness Respiratory/Chest Respiratory/Chest: Denies cough or dyspnea Gastrointestinal Gastrointestinal: Denies change in bowel habits Genitourinary Genitourinary: Denies burning urination or genital lesions Integumentary Integumentary: Denies rash Neurologic Neurologic: Denies confusion, dizziness, headache(s), numbness or weakness Vital Signs Vital Signs Vital Signs: 06/12/21 10:40 Temperature 97.6 F L Temperature Source Temporal Pulse Rate 88 Respiratory Rate 16 Blood Pressure 103/61 Blood Pressure Mean 75 Blood Pressure Source Monitor Blood Pressure Position Semi-Fowlers Blood Pressure Location Left Arm Pulse Ox 95 Oxygen Delivery Method Room Air Weight Weight: 78.8 kg Body Mass Index (BMI) 28.9 Physical Exam Const alert and no apparent distress General Appearance: cooperative HEENT normocephalic Resp normal respiratory effort Cardio regular rate GI soft to palpation GI Narrative: gravid, nontender, appropriate for gestational age Extremity no calf tenderness General Extremity: edema Skin no wounds Rashes: No rashes noted Psych activity/motor behavior normal Labs Labs Labs: Blood Type O POSITIVE Antibody Screen POSITIVE H Hct 28.8 % (37-47) L Hgb 9.4 g/dL (12.0-15.0) L Rhogam given: No Assessment Plan (1) 37 weeks gestation of : (2) Gestational diabetes mellitus, class A1: (3) 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 Discussed risk of delivery at 37 weeks and indication for this. Consent was signed. 06/12/21 1206 Cosigner Signature (if applicable): CC: Dr. Marsha Goldman DO; Dr. Sara Jackson MD Signed Normal [facility] Operative Reporton 2 Operative Report [facility] Medical Records Department [address] [place] [address] Operative Report 06/12/21 1439 MR#: [id number] Acct: [id number] Name: ROSIE BRADFORD Rep #: [id number] : 1990 31 From: Sara Jackson MD PCP: Dr. Marsha Goldman DO Status:ADM IN Location: [id number] Problems Associated Problem List Diagnoses (1) hemorrhage: Report of Operation Date of Procedure: 06/12/21 Pre-Operative Diagnosis: hemorrhage Post-Operative Diagnosis: same Surgery/Procedure Performed:: evacuation of uterine clots, control of hemorrhage Surgeon: Sara Jackson Type of Anesthesia: None Special Medications: IV dilauded 1 mg Specimen's removed: none Drains: none Estimated Blood Loss (mL): 450 Fluids Replaced: 500 Description of Procedure: I was called to labor and delivery to evaluate the patient because her uterus was boggy and they gave her a dose of Methergine. When I arrived, I was able to express approximately 100 cc of clots. The uterus was boggy. I performed an ultrasound which revealed some clots remaining in the uterus. I attempted to evacuate them manually but was unable to reach the fundus. Patient was then given 1 mg of Dilaudid IV. A second IV line was started. A set of coags and CBC were sent stat. The patient was typed and crossed for 2 units and the blood was to be held and not transfuse at this time. Then used manual evacuation as well as the banjo curette under ultrasound guidance to gently remove clots from the fundus to the uterus. 1000 mcg of Cytotec was placed rectally. The uterus then remained firm. Was approximately 3 cm below the umbilicus. Patient was given a 500 cc bolus of lactated Ringer's. Patient is stable at this time. We will recheck a CBC at 7 PM and in the morning. Findings and clinical course discussed with patient and her . Will give 1 more dose of antibiotics for infection prophylaxis. Grafts/Implants Used: none Complications none 06/12/21 1444 Cosigner Signature (if applicable): CC: Dr. Marsha Goldman DO; Dr. Sara Jackson MD Signed Normal [facility] Operative Report [facility] Medical Records Department [address] [place] [address] Operative Report 06/12/21 1240 MR#: [id number] Acct: [id number] Name: ROSIE BRADFORD Rep #: [id number] : 1990 31 From: Sara Jackson MD PCP: Dr. Marsha Goldman, DO Status:ADM IN Location: [id number] Assessment Plan (1) delivery delivered: (2) 37 weeks gestation of : Maternal Data Information Final ERIC: 07/02/21 Gestational age: 37 1/7 Details Operative Information Date of Procedure: 06/12/21 Pre-Operative Diagnosis: 37 weeks, previous c/s Post-Operative Diagnosis: same Indications for : Repeat Elective Classification: Scheduled Procedure Type: low transverse director of enterprise architecture #1: Roseline Olsen Type of Anesthesia: Spinal Anesthesiologist: Vivien Urias Special Medications: duramorph Antibiotic Given: Ancef 2 grams IV x1 Drain: Del Valle to straight drain Estimated Blood Loss: 800 Fluids Replaced: 1000 Procedure Start Time: 12:15 Procedure Stop Time: 12:50 Time of Delivery: 12:17 Findings Description of Procedure: The patient was taken to the operating room. She was prepped and draped in the dorsal supine position with a leftward tilt. A Pfannenstiel skin incision was made approx imately 2 cm above the symphysis pubis and carried through to underlying layer fascia with the scalpel. The fascia was incised incised in the midline and extended laterally with the Patel scissors. The fascia was dissected off the rectus muscles with blunt and sharp dissection. The rectus muscles were in the midline and the peritoneum was entered bluntly. The peritoneal incision was stretched and the bladder blade was placed. The uterine incision was made in a low transverse fashion with the scalpel and extended superiorly and inferiorly with blunt dissection. The amniotic membranes were ruptured bluntly and clear amniotic fluid returned. The 's head was brought to the incision in the flexed position and delivered without difficulty. The remainder of the was delivered with gentle traction and fundal pressure in the standard fashion. The mouth and nares were bulb suctioned. The cord was clamped and cut as the was stimulated. Cord clamping was delayed. The infant was handed off to the waiting nursing staff. The placenta was delivered with fundal massage and gentle traction in the standard fashion. The uterus was exteriorized and cleared of all clots and debris. The cervix was dilated with a ring forcep. The uterine incision was closed with #1 Vicryl in a running locked fashion. A second layer of the same suture was used in an imbricating fashion. The incision was examined and was found to be hemostatic. The uterus was placed back into the peritoneal cavity and hemostasis was again confirmed. The rectus muscles were examined and any bleeding was Bovie cauterized. The parietal peritoneum and rectus muscles were closed en bloc with an 0 Vicryl running suture. The surgical teams outer gloves were then changed. The rectus fascia was examined and any bleeding was Bovie cauterized and the rectus fascia was closed with 1 Vicryl suture in a running standard fashion. The subcutaneous tissue was examining and any bleeding was Bovie cauterized. The subcutaneous tissue was reapproximated with 3-0 Vicryl suture. The skin was closed in a subcuticular fashion by the PERFORMING ARTIST with me present in the labor and delivery suite. I performed the remainder of the procedure with assistance. All sponge, lap, and needle counts were correct. The patient was taken to her room for recovery in a stable condition. Presentation: Positive for Vertex Amniotic Membrane Rupture Type: Spontaneous Amniotic Fluid Description: Clear Placental Delivery Description: Manual Removal Placenta Disposition: Sent to Pathology Cord Vessel Description: 3 Vessels Cord Entanglement: None A Gender: Male (Neto, 8lb 6 oz) (1 minute): 9 (5 minute): 9 Delayed Cord Clamping: Yes Complications Complications: none Admit VTE Documentation VTE Present on Admission: No VTE Mechan Device Prophylaxis: SCD's VTE Pharm Prophylaxis Ordered: No Reason Prophylaxis Not Ordered: Procedure Not Indicated 06/12/21 1247 Cosigner Signature (if applicable): CC: Dr. Marsha Goldman DO; Dr. Sara Jackson MD Signed Normal [facility] Partial Thromboplast Timeon 06-12-2021 aPTT Coag (Bld) [Time] 23.3 s Low 24.1-36.2 [facility] Comment on above: Performed By: #### L 300.8428, L300.0456 #### [facility] [address] [place] [place], [address] Pathology Specimen OBon 05-18 PATH. Spec OB SEE PATHOLOGY REPORT Normal [facility] Comment on above: Order Comment: Reaso n for Laboratory Test Placenta for Lab studiesSend Specimen For (Specify): Studies @ [facility] Lab:RoutineTime of Procedure: 1207Date of Procedure: 06/12/21Reason specimen being sent to pathology (Hx/complications):isoimmunization in pregnancyType of specimen: PlacentaType of procedure performed: Repeat Section Result Comment: Spec imen submitted to Anatomical Pathology Department for testing. Performed By: #### L 300.3900, L300.4310 #### [facility] [address] [place], [address] Prothrombin Time w/INRon INR Coag (PPP) [Relative time] 1.0 {INR} Normal [facility] Comment on above: Performed By: #### L 300.3900, L300.4310 #### [facility] [address] [place], [address] PT Coag (PPP) [Time] 12.7 s Normal 11.7-14.9 [facility] Comment on above: Performed By: #### L 300.3900, L300.4310 #### [facility] [address] [place], [address] Type AND Screenon 06-12-2021 Ab SCREEN GEL Positive Abnormal [facility] Comment on above: Order Comment: S Performed By: #### L 100.0100, BPAN, BTS #### [facility] [address] [place], [address] ABO and Rh group Nom (Bld) Blood group O Rh(D) positive Normal [facility] Comment on above: Order Comment: S Performed By: #### L 100.0100, BPAN, BTS #### [facility] [address] [place], [address] XR KNEE THREE VIEWS LEFTon 0 09-11-2020 XR KNEE THREE VIEWS LEFT ORIGINAL XR XR KNEE THREE VIEWS LEFT, Clinical Statement: lt knee pain , Comparison: None Findings: No acute fracture, dislocation, lytic process or periosteal reaction is seen in the visualized bones of the LEFT knee. No erosive type of arthritis. No soft tissue calcification. Early osteoarthritis without joint space narrowing or joint effusion. Small accessory ossicle at the lateral margin of the patella. IMPRESSION: No acute skeletal abnormality in the LEFT knee. Early osteoarthritis. Interpreted By: Cayetano Paniagua MD Preliminary Report By: Cayetano Paniagua MD Electronically Signed By: Cayetano Paniagua MD Dictated Date: 09/11/2020 2:49:47 PM Prelim Date: 09/11/2020 2:49:47 PM Sign Date: 09/11/2020 2:50:17 PM Ordering Provider:Wilmar Parisi [facility] ([place]) CORONAVIRUS 2019 BY PCRon CORONAVIRUS 2019,PCR NOT DETECTED Normal Not Detected [facility] Comment on above: Result Comment: . This assay is designed to detect the N, ORF1ab and/or S genes of SARS-CoV-2 via nucleic acid amplification. A Negative (NOT DETECTED) result does not preclude 2019-nCoV infection since the adequacy of sample collection and/or low viral burden may result in presence of viral nucleic acids below the clinical sensitivity of this test method. Negative (NOT DETECTED) result should not be used as the sole basis for treatment or other patient management decisions. Rather negative results should be combined with clinical observations, patient history, and epidemiological information to make patient management decisions. Fact sheet for providers: https://www.fda.gov/media/803983/download Fact sheet for patients: https://www.fda.gov/media/247059/download This test has received FDA Emergency Use Authorization (EUA) and has been verified by [facility] ([facility]). This test is only authorized for the duration of time that circumstances exist to justify the authorization of the emergency use of in vitro diagnostic tests for the detection of SARS-CoV-2 virus and/or diagnosis of COVID-19 infection under section 564(b)(1) of the Act, 21 U.S.C. 360bbb-3(b)(1), unless the authorization is terminated or revoked sooner. [facility] is certified under CLIA-88 as qualified to perform high complexity testing. Testing is performed in the [facility] laboratories located at [address] [place] [address]. Performed By: #### C OV19 #### [facility] [address] [place] [address] CORONAVIRUS 2019 BY PCRon DATE OF SYMPTOM ONSET [[id number]]? [id number] Normal [facility] Comment on above: Performed By: #### C OV19 #### [facility] [address] [place] [address] EMPLOYED IN HEALTHCARE? No Normal [facility] Comment on above: Performed By: #### C OV19 #### [facility] [address] [place] [address] FIRST COVID NASAL SWAB TEST? Yes Normal [facility] Comment on above: Performed By: #### C OV19 #### [facility] [address] [place] [address] HOSPITALIZED (OR PLANNED TO BE ADMITTED)? No Normal [facility] Comment on above: Performed By: #### C OV19 #### [facility] [address] [place] [address] ICU? No Normal [facility] Comment on above: Performed By: #### C OV19 #### [facility] [address] [place] [address] ? No Normal [facility] Comment on above: Performed By: #### C OV19 #### [facility] [address] [place] [address] RESIDENT IN CONGREGATE CARE SETTING? No Normal [facility] Comment on above: Performed By: #### C OV19 #### [facility] [address] [place] [address] SYMPTOMATIC DEFINED BY CDC? Yes Normal [facility] Comment on above: Performed By: #### C OV19 #### [facility] [address] [place] [address] Lab Specimen Source Nasal, Nasopharyngeal Normal [facility] Comment on above: Performed By: #### C OV19 #### [facility] [address] [place] [address] Vital Signs Date Time Vital Sign Value Performing Clinician Tejal burt 07-17-2024 11:06-0500 Body mass index (BMI) [Ratio] 33.12 kg/m2 Sara Jackson MD Work Phone: [facility] 07-17-2024 11:06-0500 Body weight 90.27 kg Sara Jackson MD Work Phone: [facility] 07-17-2024 11:06-0500 Diastolic blood pressure 74 mm[Hg] Sara Jackson MD Work Phone: [facility] 07-17-2024 11:06-0500 Systolic blood pressure 122 mm[Hg] Sara Jackson MD Work Phone: [facility] 02-15-2024 09:46-0400 Body height 165.1 cm Sara Jackson MD Work Phone: [facility] 02-15-2024 09:46-0400 Body mass index (BMI) [Ratio] 32.28 kg/m2 Sara Jackson MD Work Phone: [facility] 02-15-2024 09:46-0400 Body weight 88 kg Sara Jackson MD Work Phone: [facility] 02-15-2024 09:46-0400 Diastolic blood pressure 64 mm[Hg] Sara Jackson MD Work Phone: [facility] 02-15-2024 09:46-0400 Systolic blood pressure 110 mm[Hg] Sara Jackson MD Work Phone: [facility] 08-20-2021 09:26-0400 Body weight 76.66 kg Sara Jackson MD Work Phone: [facility] 08-20-2021 09:26-0400 Diastolic blood pressure 72 mm[Hg] Sara Jackson MD Work Phone: [facility] 08-20-2021 09:26-0400 Systolic blood pressure 108 mm[Hg] Sara Jackson MD Work Phone: [facility] 08-06-2021 10:27-0400 Body height 165.1 cm Sara Jackson MD Work Phone: [facility] 08-06-2021 10:27-0400 Body weight 77.56 kg Sara Jackson MD Work Phone: [facility] 08-06-2021 10:27-0400 Diastolic blood pressure 60 mm[Hg] Sara Jackson MD Work Phone: [facility] 08-06-2021 10:27-0400 Systolic blood pressure 102 mm[Hg] Sara Jackson MD Work Phone: [facility] Encounters Encounter Date Encounter Type Care Provider Facility Start: 03-12-2025 End: 03-12[facility] Start: 02-16-2025 End: 02-16-2025 ambulatory MARC AGUSTIN Facility:[facility] Start: 02-08-2025 End: 02-08-2025 ambulatory [facility] Facility:[facility] Start: 01-01-2025 End: 01-05-[address] WILMAR GUAJARDO DO Facility:[facility] Start: 01-01-2025 End: 01-05-2025 Encounter for general adult medical examination without abnormal findings DR WILMAR GUAJARDO DO Facility:[facility] Start: 01-01-2025 End: 01-05-[address] [facility]ILMAR [facility]JARDO [facility] Start: 07-17-2024 End: 07-17-2024 ambulatory SARA JACKSON Facility:[facility] Start: 07-17-2024 End: 07-17-2024 Patient encounter procedure Sara Jackson MD Work Phone: OB/Gynecology Comment on above: Encounter for IUD re moval (Primary Dx) Start: 06-02-2024 End: 06-02-2024 Telephone encounter Sara Jackson MD Work Phone: OB/Gynecology Comment on above: Orders Start: 02-15-2024 End: 02-15-2024 Patient encounter procedure Sara Jackson MD Work Phone: OB/Gynecology Comment on above: Encounter for gyneco logical examination (general) (routine) without abnormal findings (Primary Dx); Encounter for routine checking of intrauterine contraceptive device (IUD); Class 1 obesity due to excess calories without serious comorbidity with body mass index (BMI) of 32.0 to 32.9 in adult Start: 02-15-2024 End: 02-15-2024 Patient encounter status Sara Jackson MD Work Phone: [facility] Start: 08-20-2021 End: 08-20-2021 Patient encounter procedure Sara Jackson MD Work Phone: OB/Gynecology Comment on above: Encounter for IUD in sertion (Primary Dx) Start: 08-06-2021 End: 08-06-2021 Patient encounter procedure Sara Jackson MD Work Phone: OB/Gynecology Comment on above: care and examination (Primary Dx) Start: 03-01-2017 Ambulatory [facility] Procedures Date Procedure Procedure Detail Performing Clinician Start: 03-12-2025 Antibody screen STEVEN Yun VAMSI Comment on above: Order Comment: Speci men Type: SWAB Ordering Facility: [facility] Address: [address] [place] [address] Performed By: #### T [facility], [id number] #### [facility] CLIA [id number] [address] [place] [address] [place] Start: 08-20-2021 Urine test visual color cmprsn meths Sara Jackson MD Work Phone: Start: 03-31-2020 Follow-up visit Plan of Treatment Date Care Activity Detail Author Start: 04-14-2031 Urine microalbumin profile [facility] Start: 02-09-2028 Screening for malign ant neoplasm of cervix Cervical Cancer Screening [facility] Start: 11-22-2025 PAP TESTING PAP TESTING [facility] Start: 02-15-2025 End: 02-15-2025 Patient encounter procedure 02/15/2025 9:00 AM EDT Office Visit OB/Gynecology [address] [place] [address] Sara Jackson MD [address] [place], [place] [id number] Annual OB/Gynecology Comment on above: Annual Start: 08-25-2024 End: 08-25-2024 Patient encounter procedure 08/25/2024 10:20 AM EDT Office Visit OB/Gynecology [address] [place], [place] [address] Rachel Mast MD [address] [place], [place] [id number] Wt mgmt New OB/Gynecology Comment on above: Wt [facility] New Start: 07-05-2024 End: 07-05-2024 Patient encounter procedure 07/05/2024 9:20 AM EST Office Visit OB/Gynecology [address] [place], [place] [id number] Sara Jackson MD [address] [place], [place] [id number] IUD removal OB/Gynecology Comment on above: IUD removal Start: 01-16-2024 Covid-19 Vaccine ( season) Covid-19 Vaccine ( season) [facility] Start: 01-16-2024 Influenza vaccination Influenza Vacc ine (#1) [facility] Start: 02-11-2021 COVID-19 VACCINE (3 - Booster for Pfizer series) COVID-19 VACCINE (3 - Booster for Pfizer series) [facility] Start: 2021 HPV TESTING HPV TESTING [facility] Start: 2009 Anxiety Screening Anxiety Screening [facility] Start: 2009 Depression Screening Depression Scre ening [facility] Start: 2003 Adult depression screening assessment DEPRESSION SCREENING [facility] Insertion intrauteri ne device iud INSERT INTRAUTERINE DEVICE Procedures Routine care and examination Ordered: 08/06/2021 [facility] Work Phone: Comment on above: Ordered: 08/06/2021 Removal intrauterine device iud REMOVE INTRAUTERINE DEVICE Procedures Routine Encounter for IUD removal Ordered: 06/02/2024 [facility] Work Phone: Comment on above: [facility]: [facility] Immunization Date Immunization Notes Care Provider Ryne martinez 02-08-2023 influenza, injectabl e, quadrivalent, contains preservative Sara Jackson MD Work Phone: [facility] 02-08-2023 influenza virus vacc ine, unspecified formulation Sara Jackson MD Work Phone: [facility] 04-30-2022 influenza, injectabl e, quadrivalent, preservative free Sara Jackson MD Work Phone: [facility] 04-30-2022 influenza, injectabl e, quadrivalent, contains preservative; Translations: [Fluarix PF Quadrivalent ] DR WILMAR GUAJARDO DO [facility] 04-14-2021 tetanus toxoid, redu janki diphtheria toxoid, and acellular pertussis vaccine, adsorbed Sara Jackson MD Work Phone: [facility] 02-18-2021 influenza virus vacc ine, unspecified formulation DR WILMAR GUAJARDO DO [facility] 02-18-2021 influenza, injectabl e, quadrivalent, contains preservative Sara Jackson MD Work Phone: [facility] 09-11-2020 COVID-19 vaccine, ag e 12+ yr (PFIZER-BIONTECH - PURPLE TOP) Sara Jackson MD Work Phone: [facility] Work Phone: Comment on above: Result Comment: 2020: TPVALL 08-20-2020 COVID-19 vaccine, ag e 12+ yr (PFIZER-BIONTECH - PURPLE TOP) Sara Jackson MD Work Phone: [facility] Work Phone: Comment on above: Result Comment: 2020: TPVALL 03-14-2020 influenza, injectabl e, quadrivalent, preservative free; Translations: [Fluarix PF Quadrivalent ] Sara Jackson MD Work Phone: [facility] Work Phone: 03-14-2019 influenza virus vacc ine, unspecified formulation Sara Jackson MD Work Phone: [facility] Work Phone: 10-11-2018 tetanus toxoid, redu janki diphtheria toxoid, and acellular pertussis vaccine, adsorbed Sara Jackson MD Work Phone: [facility] 02-23-2018 influenza, seasonal, injectable, preservative free Sara Jackson MD Work Phone: [facility] Work Phone: 02-22-2018 influenza virus vacc ine, unspecified formulation DR WILMAR GUAJARDO DO [facility] 02-22-2018 influenza, injectabl e, quadrivalent, preservative free Sara Jackson MD Work Phone: [facility] Work Phone: 02-14-2016 influenza virus vacc ine, unspecified formulation DR WILMAR GUAJARDO DO [facility] 02-14-2016 influenza, injectabl e, quadrivalent, contains preservative Sara Jackson MD Work Phone: [facility] 02-14-2016 influenza, seasonal, injectable, preservative free Sara Jackson MD Work Phone: [facility] Work Phone: 11-25-2015 tetanus toxoid, redu janki diphtheria toxoid, and acellular pertussis vaccine, adsorbed Sara Jackson MD Work Phone: [facility] 02-14-2015 influenza virus vacc ine, unspecified formulation DR WILMAR GUAJARDO DO [facility] 02-14-2015 influenza, seasonal, injectable Sara Jackson MD Work Phone: [facility] Work Phone: 02-13-2012 influenza virus vacc ine, unspecified formulation DR WILMAR GUAJARDO DO [facility] 02-13-2012 influenza, seasonal, injectable, preservative free Sara Jackson MD Work Phone: [facility] Work Phone: 04-02-2009 novel influenza-H1N1 -09, preservative-free, injectable Sara Jackson MD Work Phone: [facility] Work Phone: 02-18-2009 influenza virus vacc ine, unspecified formulation DR WILMAR GUAJARDO DO [facility] 02-18-2009 influenza, seasonal, injectable, preservative free Sara Jackson MD Work Phone: [facility] Work Phone: 01-03-[address] WILMAR GUAJARDO DO [facility] 07-30-[address] WILMAR GUAJARDO DO [facility] 05-18-[address] WILMAR GUAJARDO DO [facility] 10-05-2007 meningococcal C conjugate vaccine Sara Jackson MD Work Phone: [facility] Work Phone: 10-05-2007 meningococcal polysaccharide (groups A, C, Y and W-135) diphtheria toxoid conjugate vaccine (MCV4P) DR WILMAR GUAJARDO DO [facility] 11-05-2005 tetanus and diphther ia toxoids, adsorbed, preservative free, for adult use (5 Lf of tetanus toxoid and 2 Lf of diphtheria toxoid) Sara Jackson MD Work Phone: [facility] Work Phone: 06-17-2000 hepatitis B pediatri c vaccine DR WILMAR GUAJARDO DO [facility] 06-17-2000 hepatitis B vaccine, pediatric or pediatric/adolescent dosage Sara Jackson MD Work Phone: [facility] Work Phone: 02-02-2000 hepatitis B pediatri c vaccine DR WILMAR GUAJARDO DO [facility] 02-02-2000 hepatitis B vaccine, pediatric or pediatric/adolescent dosage Sara Jackson MD Work Phone: [facility] Work Phone: 12-09-1999 hepatitis B pediatri c vaccine DR WILMAR GUAJARDO DO [facility] 12-09-1999 hepatitis B vaccine, pediatric or pediatric/adolescent dosage Sara Jackson MD Work Phone: [facility] Work Phone: 12-16-1995 measles, mumps and rubella virus vaccine Sara Jackson MD Work Phone: [facility] Work Phone: 12-16-1995 measles/mumps/rubell a virus vaccine DR WILMAR GUAJARDO DO [facility] 12-16-1995 poliovirus vaccine, inactivated Sara Jackson MD Work Phone: [facility] Work Phone: 07-16-1995 diphtheria, tetanus toxoids and acellular pertussis vaccine, unspecified formulation Sara Jackson MD Work Phone: [facility] Work Phone: 08-07-1992 diphtheria, tetanus toxoids and acellular pertussis vaccine, unspecified formulation Sara Jackson MD Work Phone: [facility] Work Phone: 08-07-1992 poliovirus vaccine, inactivated Sara Jackson MD Work Phone: [facility] Work Phone: 06-04-1992 haemophilus influenz ae type b vaccine, PRP-T conjugate Sara Jackson MD Work Phone: [facility] Work Phone: 06-04-1992 measles, mumps and rubella virus vaccine Sara Jackson MD Work Phone: [facility] Work Phone: 06-04-1992 measles/mumps/rubell a virus vaccine DR WILMAR GUAJARDO DO [facility] 1991 diphtheria, tetanus toxoids and acellular pertussis vaccine, unspecified formulation Sara Jackson MD Work Phone: [facility] Work Phone: 1991 haemophilus influenz ae type b vaccine, PRP-T conjugate Sara Jackson MD Work Phone: [facility] Work Phone: 1991 diphtheria, tetanus toxoids and acellular pertussis vaccine, unspecified formulation Sara Jackson MD Work Phone: [facility] Work Phone: 1991 haemophilus influenz ae type b vaccine, PRP-T conjugate Sara Jackson MD Work Phone: [facility] Work Phone: 1991 poliovirus vaccine, inactivated Sara Jackson MD Work Phone: [facility] Work Phone: 1991 diphtheria, tetanus toxoids and acellular pertussis vaccine, unspecified formulation Sara Jackson MD Work Phone: [facility] Work Phone: 1991 haemophilus influenz ae type b vaccine, PRP-T conjugate Sara Jackson MD Work Phone: [facility] Work Phone: 1991 poliovirus vaccine, inactivated Sara Jackson MD Work Phone: [facility] Work Phone: Payers Date Payer Category Payer Private Health Insurance [id number] 2023 Private Health Insurance [id number] 2023 Private Health Insurance [id number] 2021 Unknown MALACHI MAURY NOBLE PPO [id number] 2021-Present [phone] [address] [place] [address] PPO [id number] 1991 Unknown [id number] Unknown [id number] Social History Date Type Detail Facility Start: 02-08-2023 End: 11-29-2024 Tobacco smoking status NHIS Never smoked tobacco [facility] Work Phone: Start: 08-06-2021 End: 07-17-2024 Alcohol intake Ex-drinker (finding) [facility] Start: 03-31-2018 History SDOH Alcohol Comment occasionally, not while [facility] Start: 11-07-2020 Education 17 [facility] Start: 1991 Sex Assigned At Not on file [facility] Start: 07-27-2021 End: 08-06-2021 Exposure to SARS-CoV-2 (event) Not sure [facility] Start: 02-08-2023 Tobacco use and exposure Smoke less tobacco non-user [facility] Start: 02-08-2023 End: 02-15-2024 History of Social function [facility] Start: 02-08-2023 End: 02-15-2024 Tobacco use panel [facility] National Score (1-10 0), lower number is lower risk 56 [facility] Sexual Orientation Adalberto H ospierin PhelpsAdalberto Rubin Sex Assigned At Female [facility] Start: 11-09-2018 Sex Female (finding) [facility] Functional Status Date Assessment Result Facility 08-01-2013 Are you deaf, or do you have serious difficulty hearing No 08/01/2013 9:32 AM EDT Laverne Weller MA No [facility] 08-01-2013 Are you blind, or do you have serious difficulty seeing, even when wearing glasses No 08/01/2013 9:32 AM EDT Laverne Weller MA No [facility] 08-01-2013 Do you have serious difficulty walking or climbing stairs No 08/01/2013 9:32 AM EDT Laverne Weller MA No [facility] 08-01-2013 Do you have difficul ty dressing or bathing No 08/01/2013 9:32 AM EDT Laverne Weller MA No [facility] 08-01-2013 Because of a physica l, mental, or emotional condition, do you have difficulty doing errands alone such as visiting a physician's office or shopping No 08/01/2013 9:32 AM EDT Laverne Weller MA No [facility] Mental Status Date Assessment Result Facility 08-01-2013 Because of a physica l, mental, or emotional condition, do you have serious difficulty concentrating, remembering, or making decisions No 08/01/2013 9:32 AM Laverne Monte MA [facility] Clinical Notes 02-24-2021 to 02-08-2025 Sara Jackson MD - 07/17/2024 11:05 AM ESTTelephone Encounter - Mae Rois RN - 06/02/2024 3:49 PM ESTTelephone Encounter - Mae Rios RN - 06/02/2024 3:49 PM EST Note Date & Type Note Facility 02-08-2025 Note HNO ID: [id number] Author: JACQUI ESCOBAR APRN.[employer] DEPARTMENT CHAIR Service: ? 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 HPI: Rosie is a 35 year old White here to establish Obstetrical Care. Patient's last menstrual period was 12/08/2024 (exact date). from OB Dating Form. was planned Complaints: nausea OB History Gravida4 Para3 Term3 Preterm0 AB0 Living3 SAB0 IAB0 Ectopic0 Multiple0 Live Births3 Previous history: Prior : yes x 2 History of 4th degree laceration: Yes History of shoulder dystocia: No History of Hypertensive disorders including pre-eclampsia or gestational hypertension: Yes History of gestational diabetes: Yes x2 Patient's Risk Screening for delivery: Have you had a prior estrada between 20w and 36w6d? No How many pregnancies have you had before? 3 Did you have a previous baby with a GBS Infection? No Please select all that apply for any prior : Baby large for gestational age x1 MEDICAL/PSYCHOSOCIAL HISTORY: History of hemorrhage or bleeding concerns: Yes x2 Thyroid Disease: No History of chronic hypertension: No History of pre-existing diabetes: No ABO/RH(D) Date Value Ref Range Status 05/21/2021 O POSITIVE Final BMI 30.10 kg/(m2) Last Pap: 02/08/2023 normal History of abnormal pap: yes ASC-US Prior treatment for cervical dysplasia: none. Last HPV: 02/08/2023 History of STDs: None Partner History of STDs: None Did you have a partner with Herpes? No Tobacco use: No E-Cigarette/Vaping Use: No Caffeine use: No Drug use: No Alcohol use: No Multivitamin with Folic acid: Yes Would refuse blood transfusion if medically necessary: No Social Needs: How often does this describe you? I don't have enough money to pay my bills: Never Within the past 12 months, have you worried that your food would run out before you had money to buy more? Never In the past 12 months, has lack of reliable transportation kept you from going to medical appointments or work, or from getting things needed for daily living? Never In the past 12 months, have you had any concerns about having a place to live, or about the condition or quality of your housing? Never Would you like more information on any of the following (please check all that apply)? Not interested Social History: Do you have any history of depression, anxiety, PTSD, or other mood problems? No Do you have a history of abuse or trauma that may impact your experience? No Are you currently employed? Yes self Depression/Anxiety Screening: denies symptoms of depression. OB Depression and Anxiety Screening- This Encounter Feeling down, depressed, or hopeless: Not at all Little interest or pleasure in doing things: Not at all Feeling nervous, anxious, or on edge Not at all Not being able to stop or control worrying Not at all Anxiety Pre-Screening Total (If >/= 3 additional questions will be reviewed) 0 Genetic Screening: Partner present: No Patient verbalized knowledge of partner family health history: Yes Do you or your partner have any personal or family history of defects not previously discussed: No Do you have history of a complicated by anomaly, genetic condition, or demise: No Preeclampsia Risk Screening: Screening for prevention of preeclampsia: High risk factors: None Moderate risk ractors: Obesity (body mass index greater than 30) OB Risk Screening: Completed, no positive findings documented. 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 Rhesus isoimmunization affecting management of mother, antepartum condition, first trimester, other fetus ([facility]) 12/26/2020 PAST SURGICAL HISTORY Procedure Laterality Date SNGL 06/12/2021 DELIVERY ONLY 11/21/2018 C/S low transverse EXTRACTION, ERUPTED TOOTH OR EXPOSED ROOT (ELEVATION AND/OR FORCEPS REMOVAL) wisdom INSERTION OF IUD 08/20/2021 mirena PAST SURGICAL HISTORY OF repair 4th degree vag lac and sulcus tear, DANDC for PPH SKIN BIOPSY HX benign mole removal Current Outpatient Medications Medication Sig Dispense Refill PNV95/FERROUS FUMARATE/FA ( ORAL) Take by mouth. levonorgestrel (MIRENA) 21 mcg/24 hours (8 yrs) 52 mg IUD 1 Each by INTRAUTERINE route as (more content not included)... [facility] 07-17-2024 Note HNO ID: [id number] Author: SARA JACKSON MD Service: ? Author Type: Physician Type: Progress Notes Filed: 07/17/2024 11:23 Note Text: Rosie presents for removal of IUD due to considering . UNIVERSAL PROTOCOL / SAFETY CHECKLIST Procedure to be Performed: IUD removal Sign In: A Moment of CARE was completed. Appropriate PPE (Personal Protective Equipment) worn by all providers involved with the procedure. Special equipment not required. Patient/Surrogate Stated/Verified: Patient name, Date of , Relevant allergies, and The intended procedure Time Out: Relevant labs, photos, and/or imaging studies have been reviewed. Intended patient and procedure match the source document(s) (e.g. consent, HANDP, associated studies [imaging, pathology]) are not applicable. Consent obtained and matches the intended procedure. Yes. Correct side/site is not applicable. Medications required for this procedure are not applicable. Fire risk assessed and is not applicable. Implants: are not applicable. Sign Out: Specimens not collected. All instruments, equipment, possible retained foreign bodies are accounted for. Yes. The post-procedure plan of care has been communicated to the patient or surrogate. PROCEDURE: Speculum placed in vagina, IUD string visualized and grasped with ring forceps. ASSESSMENT/PLAN: IUD removed without difficulty, intact, and patient tolerated procedure well. Contraception plans: Mirena IUD Reviewed pre-conception guidelines including folic acid supplementation, optimal timing of intercourse, avoidance of smoking, alcohol, exposure to environmental chemicals and need for evaluation if not within 12 months. Sara Jackson MD [facility] 07-17-2024 History of Presen t illness Narrative Rosie presents for removal of IUD due to considering . UNIVERSAL PROTOCOL / SAFETY CHECKLIST Procedure to be Performed: IUD removal Sign In: A Moment of CARE was completed. Appropriate PPE (Personal Protective Equipment) worn by all providers involved with the procedure. Special equipment not required. Patient/Surrogate Stated/Verified: Patient name, Date of , Relevant allergies, and The intended procedure Time Out: Relevant labs, photos, and/or imaging studies have been reviewed. Intended patient and procedure match the source document(s) (e.g. consent, H&P, associated studies [imaging, pathology]) are not applicable. Consent obtained and matches the intended procedure. Yes. Correct side/site is not applicable. Medications required for this procedure are not applicable. Fire risk assessed and is not applicable. Implants: are not applicable. Sign Out: Specimens not collected. All instruments, equipment, possible retained foreign bodies are accounted for. Yes. The post-procedure plan of care has been communicated to the patient or surrogate. PROCEDURE: Speculum placed in vagina, IUD string visualized and grasped with ring forceps. ASSESSMENT/PLAN: IUD removed without difficulty, intact, and patient tolerated procedure well. Contraception plans: Mirena IUD Reviewed pre-conception guidelines including folic acid supplementation, optimal timing of intercourse, avoidance of smoking, alcohol, exposure to environmental chemicals and need for evaluation if not within 12 months. Sara Jackson MD documented in this encounter [facility] 06-02-2024 Telephone encounter Note Patient would like IUD removed. Order pending. Please file so that it can be attached to her upcoming appointment. Mae Rios RN [facility] 06-02-2024 Miscellaneous Notes Patient would like IUD removed. Order pending. Please file so that it can be attached to her upcoming appointment. 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 Rosie is a 34 year old who presents for an annual gynecologic exam without complaints. Menses: occas. spotting w/ mirena. Contraception: IUD HPV vaccine: Yes Last Pap: 02/12/2023 normal HPV: 02/09/2023 negative History of abnormal pap: No Last mammogram: never Sexually active: Yes OB History T3 L3 SAB0 IAB0 Ectopic0 Multiple0 Live Births3 Tender Coordinator History LMP: 09/25/2020 (Exact Date), IUD Age at Menarche: Age at First : Age at Menopause: Tender Coordinator History Comments: Sexual Activity: Yes; Male Contraception: I.U.D. 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 Rhesus isoimmunization affecting management of mother, antepartum condition, first trimester, other fetus 12/26/2020 PAST SURGICAL HISTORY Procedure Laterality Date SNGL 06/12/2021 DELIVERY ONLY 11/21/2018 C/S low transverse EXTRACTION, ERUPTED TOOTH OR EXPOSED ROOT (ELEVATION AND/OR FORCEPS REMOVAL) wisdom INSERTION OF IUD 08/20/2021 mirena PAST SURGICAL HISTORY OF repair 4th degree vag lac and sulcus tear, D&C for PPH SKIN BIOPSY HX benign mole removal FAMILY HISTORY Problem Relation Age of Onset Osteoporosis Mother Heart Mother heart murmur Diabetes Father Psychiatry Father anxiety Prostate Cancer Father No Known Problems Sister No Known Problems Brother Osteoporosis Maternal Grandmother Heart Maternal Grandfather No Known Problems Paternal Grandmother No Known Problems Paternal Grandfather No Known Problems Son No Known Problems Son SOCIAL HISTORY Social History Tobacco Use Smoking status: Never Smokeless tobacco: Never Vaping Use Vaping status: Never Used Substance Use Topics Alcohol use: Not Currently Comment: occasionally, not while Drug use: No REVIEW OF SYSTEMS Abdomen: No abdominal pain, nausea, vomiting, diarrhea, or constipation. No bloating, early satiety, indigestion, or increased flatulence. Bladder: No dysuria, gross hematuria, urinary frequency, urinary urgency, or incontinence. Breast: No breast lumps, nipple d/c, overlying skin changes, redness or skin retraction. Allergies and current medication updated:Yes SENSITIVE EXAM: The sensitive examination was discussed with the Patient or Patient's Authorized [employer]cre[employer]. As applicable, any other physician, advance practice provider, medical student, or other health professional student that will be observing or involved in the sensitive examination for educational or training purposes was discussed with the Patient or Authorized [employer]cre[employer]man. The Patient or Authorized [employer] Aircrewman has agreed to proceed with the sensitive examination. (Sensitive examination includes inspection and/or palpation of the breasts, pelvis, prostate and anorectal regions). EXAM: BP 110/64 Ht 5' 5" (1.65m) Wt 194 lb (88.0kg) LMP 09/25/2020 BMI 32.28 kg/(m^2). GENERAL: pleasant, female in no apparent distress HEENT: Normocephalic, atraumatic, mucus membranes moist, and no lesions NECK: Supple, full range of motion, no adenopathy, and thyroid normal DERMATOLOGY: Normal, without lesions, non-icteric, and non-hirsute BREAST: soft, non-tender, symmetric, no dominant mass, normal nipple-areolar complex, no lymphadenopathy, and no nipple discharge CHEST: Normal inspiratory effort ABDOMEN: soft, non-tender, and no masses PELVIC: external genitalia normal, normal Bartholin's glands, urethra, Lomas's glands, no vulvar lesions, no cervical lesions, good vaginal support, physiologic discharge present, normal appearing perineal body and perianal region BIMANUAL: uterus normal size, shape and consistency, no adnexal masses, and non-tender RECTOVAGINAL: deferred. NEURO: alert and oriented x3,exam grossly non-focal EXTREMITIES: normal ASSESSMENT/PLAN: 1) Health maintenance: Pap/HPV up to date. HPV vaccine: completed series 2) Contraception: IUD. Contraceptive options reviewed and information provided. 3) STD screening: Declined STD check. 4) Follow up one year or sooner as needed Sara Jackson MD documented in this encounter [facility] 08-20-2021 Instructions Aide Ricarda Sd - 08/20/2021 9:25 AM EDT POST IUD INSTRUCTIONS You may have irregular bleeding during the first 3 months of use. You may have mild-severe cramping for the next 48 hours. You may use over the counter medication (Motrin, Tylenol) as needed. Your IUD must be removed or replaced based on the following table: IUD Type Removed or replaced within: Hazel 3 years Kyleena 5 years Mirena 7 years Paragard 10 years Call my office for signs/symptoms of infection such as severe cramping, fever, or unusual bleeding. Check for string placement as instructed by your doctor. If you have any additional questions, please contact the office. documented in this encounter [facility] 08-20-2021 History of Presen t illness Narrative Rosie presents today for IUD insertion for contraception. Patient's last menstrual period was 09/25/2020 (exact date). GC/chlamydia: Not done: no risk factors and/or patient declines screening test: negative Side effects including irregular bleeding were discussed with the patient. The patient understands that it should be removed in 7 years or sooner if the patient desires a . IUD source: office provided IUD lot #: [id number] Exp date: 07/14/2023 UNIVERSAL PROTOCOL / SAFETY CHECKLIST Procedure to be Performed: Mirena IUD insertion Sign In: A Moment of CARE was completed. Personnel directly involved with the procedure wore the appropriate PPE (Personal Protective Equipment). No special equipment needed. Patient/Surrogate Stated/Verified: PATIENT VERIFIED(optional for EMERGENT procedures): Patient name, Date of , Relevant allergies and The intended procedure Time Out Communication: Intended patient and procedure match the source documents. Consent documented and matches the intended procedure. Implant(s) inserted: Correct implant(s) confirmed including size and side. and Expiration date(s) reviewed. Sign Out: SIGN OUT (optional for EMERGENT procedures): No specimen collected. All instruments, equipment, possible retained foreign bodies accounted for. Post-procedure follow-up management communicated and Plan of Care Visit completed when applicable. Sara Jackson M.D. The uterus sounded to 8 cm and the uterus is Anteverted.. After prepping the cervix with betadine and using sterile technique, the Mirena IUD was inserted without difficulty and the string was cut to 2cm from the external os of the cervix. Patient tolerated procedure well. PLAN: Patient was advised to observe for signs and symptoms of infection including but not limited to fever, malodorous vaginal discharge and/or pain. The patient was told to check the string monthly for accurate placement. Bleeding expectations were reviewed. Follow up for next annual exam or sooner as needed. Sara Jackson MD documented in this encounter [facility] 08-06-2021 History of Presen t illness Narrative VISIT Rosie Bradford is a 31 year old year old here for visit. Delivery Summary: repeat c/s ROS/ Recovery: Feeding: Breast feeding problems: None Menses since delivery: n/a Menstrual pattern prior to : Regular periods [place] since delivery: Not resumed Depression: denies symptoms of depression. OB Depression and Anxiety Screening- This Encounter (since 08/05/2021) Over the past 2 weeks have you felt down, depressed, or hopeless? Negative Over the past two weeks, have you felt little interest or pleasure in doing things? Negative Feeling nervous, anxious or on edge 0-Not at all Not being able to stop or control worrying 0-Not al all Anxiety Pre-Screening Total (If >/= 3 additional questions will be reviewed) 0 Emotional support: Yes Bowel symptoms: Negative for abdominal discomfort, blood in stools or black stools and change in bowel habits Abdomen: She reports no incisional redness, tenderness, erythema Bladder symptoms: No dysuria, gross hematuria, urinary frequency, urinary urgency, or incontinence Other issues: None Last Pap: 2020 normal HPV: negative PAST MEDICAL HISTORY Diagnosis Date Anemia Anxiety anxiety Gestational diabetes mellitus, class A1 12/11/2015 History of blood transfusion 4 units after delivery 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 Rhesus isoimmunization affecting management of mother, antepartum condition, first trimester, other fetus 12/26/2020 PAST SURGICAL HISTORY Procedure Laterality Date SNGL 06/12/2021 DELIVERY ONLY 11/21/2018 C/S low transverse EXTRACTION, ERUPTED TOOTH OR EXPOSED ROOT (ELEVATION AND/OR FORCEPS REMOVAL) wisdom PAST SURGICAL HISTORY OF repair 4th degree vag lac and sulcus tear, D&C for PPH SKIN BIOPSY HX benign mole removal FAMILY HISTORY Problem Relation Age of Onset Osteoporosis Mother Heart Mother heart murmur Diabetes Father Psychiatry Father anxiety Prostate Cancer Father No Known Problems Sister No Known Problems Brother Osteoporosis Maternal Grandmother Heart Maternal Grandfather No Known Problems Paternal Grandmother No Known Problems Paternal Grandfather No Known Problems Son No Known Problems Son Social History Tobacco Use Smoking status: Never Smoker Smokeless tobacco: Never Used Vaping Use Vaping Use: Never used Substance Use Topics Alcohol use: Not Currently Comment: occasionally, not while Drug use: No PHYSICAL EXAMINATION: Ht 5' 5" (1.65m) Wt 171 lb (77.6kg) LMP 09/25/2020 BMI 28.46 kg/(m^2). GENERAL: pleasant, female in no apparent distress HEENT: Normocephalic, atraumatic, mucus membranes moist and no lesions NECK: Supple, full range of motion, no adenopathy and thyroid normal DERMATOLOGY: Normal, without lesions, non-icteric and non-hirsute BREAST: soft, non-tender, symmetric, no dominant mass, normal nipple-areolar complex, no lymphadenopathy and no nipple discharge CHEST: Normal inspiratory effort ABDOMEN: soft, non-tender and no masses. INCISION: No incisional redness, swelling, or drainage PELVIC: external genitalia normal, normal Bartholin's glands, urethra, Lomas's glands, no vulvar lesions, no cervical lesions, good vaginal support, physiologic discharge present, normal appearing perineal body and perianal region BIMANUAL: uterus normal size, shape and consistency, no adnexal masses and non-tender NEURO: alert and oriented x3,exam grossly non-focal EXTREMITIES: normal ASSESSMENT AND PLAN: 31 year old status post CS with normal course. Contraception plan: IUD - Mirena Follow up: RTC for annual exams and PRN Sara Jackson MD documented in this encounter [facility] 06-12-2021 Note OPERATION: Repeat ce sarean section PRE-OP DIAGNOSIS: Isoimmunization in TISSUE SUBMITTED: Placenta Estrada placenta (555 gm): Umbilical cord ??? trivascular with no inflammation. Placental membranes ??? acute deciduitis. Placental disc ??? foci of intraparenchymal hemorrhage, Morgan-Nish change, intervillous congestion and mild chronic decidual inflammation. AM:gloria 06/16/2021 Slides are reviewed. SPECIMEN: PLACENTA / CLINICAL INFORMATION: A. Weight: 3.51 kg B. Gestational Age: 37 weeks C. Sex: Male PLACENTAL WEIGHT (POST FIXATION): 555 gm PLACENTAL DIMENSIONS: 18 x 16 x 3 cm PLACENTAL SHAPE: Usual ovoid PLACENTAL WEIGHT FOR GESTATIONAL AGE: Over 99th percentile MEMBRANES - Present A. Insertion: Marginal B. Site of rupture from edge: At edge of placental disc C. Color of membrane: Rodriguez-dickey D. Abnormalities: None UMBILICAL CORD - Present A. Color: Rodriguez-dickey B. Insertion: Paracentral C. Length: 32 cm D. Diameter: 1.5 cm E. Number of vessels: Three F. Abnormalities: None PLACENTAL DISC - Present A. Color of surface: Rodriguez-dickey B. surface abnormalities: surface shows a few pleural plaque. The large plaque measures 1.5 cm in greatest dimension. C. Maternal cotyledons: Intact with minimal tears D. Attached retro placental clot: No clot E. Cut surface: Dark red and spongy F. Lesions: Sections reveal three rodriguez, indurated areas. largest measuring 2 cm in greatest dimension. G. Separate clot: Absent SECTIONS SUBMITTED: 1. Membrane roll 2. Cord, maternal end 3. Cord, end 4. Placental disc, and maternal surfaces, lesion, plaque 5. Placental disc, and maternal surfaces, lesion 6. Placental disc, and maternal surfaces, plaque SJ:gloria 06/13/2021 TC:2 CPT: 91986 Signed (signature on file) Dr. Juan Brown, 06/16/21 1201 [facility] Comment on above: Performed By: #### L 300.3900, L300.4310 #### [facility] [address] [place], [address] 02-24-2021 History of Past i llness Narrative Problem Noted Date Resolved Date Red blood cell antibody positive 02/24/2021 06/25/2021 Overview: See Blood Bank Report, Antibody Interpretation for details. Isoimmunization from blood g roup incompatibility during in third trimester 12/26/2020 06/25/2021 Overview: February 17, 2021 Glen has "c" antigen. Sara Jackson MD Patient has anti-c titer 1:4 12/2020. Recommend FOB be tested to tested for this. Sara Jackson MD with history of section, ante 11/07/2020 06/25/2021 Overview: 11/07/2020t had a vaginal followed by a C section due to history of 4th degree laceration . She desires a repeat C section by Dr Jackson.TKRN Abnormal antibody titer 04/19/2018 12/01/19 Overview: July 14, 2018 Ab screen neg. Sara Jackson MD April 19, 2018 See antibody titer report. May not be clinically signif. but slightly positive reaction. Recommend repeat in 1-2 months. Sara Jackson MD History of maternal fourth d egree perineal laceration, currently 03/31/2018 11/30/2018 Overview: 03/31/2018Patient has a history of a difficult previous delivery -9 vacuum pulls. 4th degree laceration and sulcus tear.Patient considering C Section by Dr Jackson versbryan vaginal . LEXIE on C Section ordered.TKRN History of hemorrhage 03/31/2018 06/25/2021 Overview: 11/07/2020 She has history of hemorrhage with her first delivery. Estimated blood loss 3000cc. PRBCx4.History of 4th degree lac TKRN History of gestational diabe consuelo in prior , currently 03/31/2018 04/22/2021 Overview: April 16, 2021 abnl 1 hr. #hr ordered. Sara Jackson MD 11/07/2020he has a history of gestational diabetes. Will plan on GCt @ NOB. TKRN History of macrosomia in inf ant in prior , currently 03/31/2018 06/25/2021 Overview: 11/07/2020he has a history of her first child weighing [id number] at . 2nd child's birthweight was [id number]. TKRN Family history of trisomy 18 03/31/201801/2022 Overview: 11/07/2020atient's 2nd cousin born with Trisomy 18. shortly after . Patient declines aneuploidy screening TKRN Diet controlled gestational diabetes mellitus (GDM) in third trimester 12/11/2015 06/25/2021 Encounter for supervision of normal first in third trimester 07/18/2015 03/27/2016 Overview: July 18, 2015 Mother is Neela MENDOZA from [facility] Sara Jackson MD Viral Wart: Verruca Vulgaris : HPV wart left lower lip priya border 10/09/2012 07/16/2015 Open wound(of L lower lip ve rmillion border, without mention of complication 10/09/2012 01/03/2015 HYPOPIGMENTATION///DYSCHROMIA UNSPECIFIED 200801/03/2015 PITYRIASIS ALBA---PITYRIASIS NEC & NOS 9 01/03/2015 ECZEMATOUS DERMATITIS NOS 11/22/20082014 XEROSIS///SEBACEOUS GLAND DIS NEC 11/22/2008 01/03/2015 documented as of this encounter (statuses as of 08/06/2021) [facility] History of Past illness Narrative* Problem Noted Date Resolved Date Red blood cell antibody positive 02/24/2021 06/25/2021 Overview: See Blood Bank Report, Antibody Interpretation for details. Isoimmunization from blood g roup incompatibility during in third trimester 12/26/2020 06/25/2021 Overview: February 17, 2021 Glen has "c" antigen. Sara Jackson MD Patient has anti-c titer 1:4 12/2020. Recommend FOB be tested to tested for this. Sara Jackson MD with history of section, ante 11/07/2020 06/25/2021 Overview: 11/07/2020t had a vaginal followed by a C section due to history of 4th degree laceration . She desires a repeat C section by Dr Jackson.TKRN Abnormal antibody titer 04/19/2018 12/01/19 19 Overview: July 14, 2018 Ab screen neg. Sara Jackson MD April 19, 2018 See antibody titer report. May not be clinically signif. but slightly positive reaction. Recommend repeat in 1-2 months. Sara Jackson MD History of maternal fourth d egree perineal laceration, currently 03/31/2018 11/30/2018 Overview: 03/31/2018Patient has a history of a difficult previous delivery -9 vacuum pulls. 4th degree laceration and sulcus tear.Patient considering C Section by Dr Jackson verses vaginal . LEXIE on C Section ordered.TKRN History of hemorrhage 03/31/2018 06/25/2021 Overview: 11/07/2020 She has history of hemorrhage with her first delivery. Estimated blood loss 3000cc. PRBCx4.History of 4th degree lac TKRN History of gestational diabe consuelo in prior , currently 03/31/2018 04/22/2021 Overview: April 16, 2021 abnl 1 hr. #hr ordered. Sara Jackson MD 11/07/2020he has a history of gestational diabetes. Will plan on GCt @ NOB. TKRN History of macrosomia in inf ant in prior , currently 03/31/2018 06/25/2021 Overview: 11/07/2020he has a history of her first child weighing [id number] at . 2nd child's birthweight was [id number]. TKRN Family history of trisomy 18 03/31/201801/2022 Overview: 11/07/2020atient's 2nd cousin born with Trisomy 18. shortly after . Patient declines aneuploidy screening TKRN Diet controlled gestational diabetes mellitus (GDM) in third trimester 12/11/2015 06/25/2021 Encounter for supervision of normal first in third trimester 07/18/2015 03/27/2016 Overview: July 18, 2015 Mother is Neela MENDOZA from [facility] Sara Jackson MD Viral Wart: Verruca Vulgaris : HPV wart left lower lip priya border 10/09/2012 07/16/2015 Open wound(of L lower lip ve rmillion border, without mention of complication 10/09/2012 01/03/2015 HYPOPIGMENTATION///DYSCHROMIA UNSPECIFIED 200801/03/2015 PITYRIASIS ALBA---PITYRIASIS NEC & NOS 9 01/03/2015 ECZEMATOUS DERMATITIS NOS 11/22/20082014 XEROSIS///SEBACEOUS GLAND DIS NEC 11/22/2008 01/03/2015 documented as of this encounter (statuses as of 08/20/2021) [facility] + Plan note No data available for this section [facility] Evaluation note* Diagnosis care and examination- Primary Routine follow-up documented in this encounter [facility] note* Diagnosis Encounter for IUD insertion- Primary Encounter for insertion of intrauterine contraceptive device documented in this encounter [facility] note* Diagnosis Encounter for gynecological examination (general) (routine) without abnormal findings- Primary Encounter for routine checking of intrauterine contraceptive device (IUD) Class 1 obesity due to excess calories without serious comorbidity with body mass index (BMI) of 32.0 to 32.9 in adult documented in this encounter [facility] note* Diagnosis Encounter for IUD removal- Primary Encounter for removal of intrauterine contraceptive device documented in this encounter [facility] note* Diagnosis Encounter for IUD removal- Primary Encounter for removal of intrauterine contraceptive device [facility] No data available for this section [facility] Progress note No data available for this section [facility] Reason for referral (narrative)* Outpatient Procedure (Routine) - Pending Review Specialty Diagnoses / Procedures Referred By Carl wang Referred To Contact [facility] Diagnoses care and examination Procedures INSERT INTRAUTERINE DEVICE LEVONORGESTREL IU 52MG 5 YR INSERT INTRAUTERINE DEVICE Sara Jackson MD [address] [place], [place] [address] [place] [address] [address] Referral ID Status Reason Start Date Expiration Date Visits Requested Visits Authorized [id number] Pending Review Auto-Generat ed Referral 08/06/2021 08/06/2022 1 1 [facility] Outpatient Procedure (Routine) - Authorized Specialty Diagnoses / Procedures Referred By Carl wang Referred To Contact [facility] Diagnoses Encounter for IUD removal Procedures REMOVE INTRAUTERINE DEVICE REMOVE INTRAUTERINE DEVICE Sara Jackson MD [address] [place] [address] [facility] [address] [place] [address] Referral ID Status Reason Start Date Expiration Date Visits Requested Visits Authorized [id number] Authorized Auto-Generat ed Referral 06/02/2024 06/02/2025 1 1 [facility] Summary Purpose Family History No Family History Records FoundNo Family History Records FoundNo Family History Records FoundNo Family History Records FoundNo Family History Records Found No data available for this section No Family History Records FoundNo Family History Records Found Advance Directives No Advanced Directives Records FoundNo Advanced Directives Records FoundNo Advanced Directives Records FoundNo Advanced Directives Records FoundNo Advanced Directives Records FoundNo Advanced Directives Records FoundNo Advanced Directives Records Found Medications Administered Section Inactive Administered Medications - up to 3 most recent administrations Medication Order MAR Action Action Date Dose Rate Site levonorgestrel 20 mcg/24 hours (7 yrs) 52 mg 1 Each intrauterine device (MIRENA) 1 Each, INTRAUTERINE, ONCE (UP TO 30 DAYS AMB), 1 dose, On Wed08/20/21 at 1000, Hazardous Potential Reproductive Risk Drug: Use appropriate PPE. Given 08/20/2021 9:51 AM EDT 1 Each Reason for Referral Specialty Diagnoses / Procedures Referred By Carl wang Referred To Contact Diagnoses Class 1 obesity due to excess calories without serious comorbidity with body mass index (BMI) of 32.0 to 32.9 in adult Procedures CONSULT TO [facility] WEIGHT MANAGEMENT PROGRAM OFFICE/OUTPATIENT [facility] 60 MINUTES Sara Jackson MD [address] [place] [address] Referral ID Status Reason Start Date Expiration Date Visits Requested Visits Authorized [id number] Authorized PCP Requested Referral Auto-Generate d Referral 02/15/2024 02/14/2025 1 1 Additional Source Comments INFORMATION SOURCE (unrecogn ized section and content) DATE CREATED AUTHOR 11/09/2017 [facility] DATE CREATED AUTHOR AUTHOR'S ORGANIZ ATION 03/31/2020 [facility] DATE CREATED AUTHOR AUTHOR'S ORGANIZ ATION 04/03/2020 [facility] DATE CREATED AUTHOR AUTHOR'S ORGANIZ ATION 11/06/2020 [facility] DATE CREATED AUTHOR AUTHOR'S ORGANIZ ATION 07/10/2021 [facility] DATE CREATED AUTHOR AUTHOR'S ORGANIZ ATION 01/08/2025 [facility] DATE CREATED AUTHOR AUTHOR'S ORGANIZ ATION 03/14/2025 [facility] Source Comments (unrecognize d section and content) In the event this informatio n is protected by the Federal Confidentiality of Alcohol and Drug Abuse Patient Records regulations: The Federal rules restrict any use of the information to criminally investigate or prosecute any alcohol or drug abuse patient.[facility] the event this information is protected by the Federal Confidentiality of Alcohol and Drug Abuse Patient Records regulations: The Federal rules restrict any use of the information to criminally investigate or prosecute any alcohol or drug abuse patient.[facility] the event this information is protected by the Federal Confidentiality of Alcohol and Drug Abuse Patient Records regulations: The Federal rules restrict any use of the information to criminally investigate or prosecute any alcohol or drug abuse patient.[facility] the event this information is protected by the Federal Confidentiality of Alcohol and Drug Abuse Patient Records regulations: The Federal rules restrict any use of the information to criminally investigate or prosecute any alcohol or drug abuse patient.[facility] the event this information is protected by the Federal Confidentiality of Alcohol and Drug Abuse Patient Records regulations: The Federal rules restrict any use of the information to criminally investigate or prosecute any alcohol or drug abuse patient.[facility] Reason for Visit (unrecogniz ed section and content) Reason Comments Routine Reason Onset Date Comments Insertion Of IUD 08/20/2021 Specialty Diagnoses / Procedures Referred By Carl wang Referred To Contact [facility] Diagnoses care and examination Encounter for insertion of intrauterine contraceptive device Encounter for removal of intrauterine contraceptive device Procedures INSERT INTRAUTERINE DEVICE LEVONORGESTREL IU 52MG 5 YR INSERT INTRAUTERINE DEVICE REMOVE INTRAUTERINE DEVICE Sara Jackson MD [address] [place] [address] [facility] [address] [place] [address] Referral ID Status Reason Start Date Expiration Date Visits Requested Visits Authorized [id number] Authorized Auto-Generat ed Referral 08/11/2021 05/16/2022 2 2 Reason Comments Yearly Exam Reason Comments Orders Reason Comments IUD Removal Specialty Diagnoses / Procedures Referred By Carl wang Referred To Contact [facility] Diagnoses Encounter for IUD removal Procedures REMOVE INTRAUTERINE DEVICE REMOVE INTRAUTERINE DEVICE Sara Jackson MD [address] [place] [address] Phone: tel: fax: [facility] [place] [address] Referral ID Status Reason Start Date Expiration Date V isits Requested Visits Authorized [id number] Closed Auto-Generate d Referral 06/02/2024 06/02/2025 1 1 Care Teams (unrecognized sec tion and content) Sensor Operator Relationship Specialty Start Date End Date Marsha Goldman, DO [address] [place] [id number] PCP - General Family Practice 04/14/21 Sensor Operator Relationship Specialty Start Date End Date Marsha Goldman DO [address] [place] [id number] PCP - General Family Practice 04/14/21 Sensor Operator Relationship Specialty Start Date End Date Marsha Goldman DO [address] [place] [id number] PCP - General Family Medicine 04/14/21 Sensor Operator Relationship Specialty Start Date End Date Marsha Goldman DO [address] [place] [id number] PCP - General Family Medicine 04/14/21 FOR RECORDS PERTAINING TO PATIENTS WHO ARE OR HAVE BEEN ENROLLED IN A CHEMICAL DEPENDENCY/SUBSTANCEABUSE PROGRAM, SOME INFORMATION MAY BE OMITTED. This clinical summary was aggregated from multiple sources. Caution should be exercised in using it in the provision of clinical care. This summary normalizes information from multiple sources, and as a consequence, information in this document may materially change the coding, format and clinical context of patient data. In addition, data may be omitted in some cases. CLINICAL DECISIONS SHOULD BE BASED ON THE PRIMARY CLINICAL RECORDS. [employer] provides no warranty or guarantee of the accuracy or completeness of information in this document.
--- NOTE | 2025-04-08 06:43 | EDS_ITS ---
HPI History of Present Illness Chief Complaint: Abd Pain Narrative Narrative: Patient was seen and examined after presenting to ED for abdominal pain mostly epigastric it occurred and the patient was trying to sleep she felt like she was getting nauseous no vomiting she reports that she is 17 weeks and attempted to take Tums in case is more acid but it was not subsiding until just before the ambulance got there she is 17 weeks and follows with [facility] [place] [employer]. [facility] Medical History macrosomia hemorrhage Gestational diabetes Pilonidal abscess of cleft Pilonidal disease Anxiety Home Medications Medication Instructions Recorded Last Taken Type Vitamin 1 tab PO/SL DAILY Check with 06/12/21 06/11/21 08:00 History primary doctor Allergy/AdvReac Type Severity Reaction Status Date / Time erythromycin base (From Allergy Unknown Verified 04/08/25 05:43 Pediazole) Sulfa (Sulfonamide Allergy Hives Verified 04/08/25 05:43 Antibiotics) sulfisoxazole (From Allergy Unknown Verified 04/08/25 05:43 Pediazole) Family History Father Cancer prostate cancer Diabetes Mother aortic valve murmur Osteoporosis Surgical History history removal wisdom teeth History of Social History Smoking Status: Never smoker alcohol intake: never substance use type: does not use ROS ROS ED ROS Narrative Pertinent Positives: Epigastric abdominal pain now resolved Pertinent Negatives: Vomiting black or bloody stools diarrhea fevers chills urinary symptoms vaginal bleeding or discharge The remainder of review of systems negative unless otherwise stated in the HPI above. Systems reviewed including constitutional, psychiatric, cardiovascular, respiratory, integument, HENT, gastrointestinal. EXAM Physical Exam Narrative Exam Narrative: Patient is afebrile hemodynamically stable does not appear toxic or in distress she is normocephalic and atraumatic cranial nerves II through XII grossly intact her abdomen is soft no reproducible pain on palpation but in the epigastric area she said that is where the pain was occurring previously. Demonstrating a slightly gravid abdomen. Skin is warm and well-perfused she has intact MSPs Const Vital Signs: 04/08/25 05:43 04/08/25 07:21 Temperature 97.7 F L 97.7 F L Temperature Source Oral Pulse Rate 83 91 Respiratory Rate 16 18 Blood Pressure 112/60 114/59 L Blood Pressure Mean 77 77 Pulse Ox 100 100 Oxygen Delivery Method Room Air MDM MDM MDM Narrative Medical decision making narrative: Nursing notes, triage notes, available previous documentation, and vital signs were reviewed. Any discrepancies noted were addressed. Differential Diagnoses: Low suspicion for spontaneous or ACS or PE. Could consider cholecystitis but lower suspicion for that or pancreatitis Interventions: Fluids Given: 1 L normal saline Labs Reviewed: No leukocytosis or leukopenia or anemia. No electrolyte abnormalities or renal insufficiency or transaminitis. Urine without evidence of infection. Imaging Reviewed: Bedside ultrasound images were not saved I was able to see the fetus it was actively moving patient also felt movement. heart rate of 123. Previous Documentation Reviewed: None available or applicable at this time. ED Course: Patient presenting with symptoms as described above she denied having any vaginal bleeding or abnormal vaginal discharge we will check for UTI we will get labs to see if there is any significant abnormalities that would be concerning enough to get a formal ultrasound of her gallbladder I have low suspicion for appendicitis as well as we will hold off on getting a CT at this time we will get labs and assess from there. Labs are so far unremarkable we are just pending quantitative hCG but plan for discharge. Quantitative hCG is 20,723 patient will be discharged This note was made utilizing voice recognition software. All attempts were made to correct spelling or other errors prior to note completion. However, due to the fast-paced nature of emergency medicine, some errors may still be present. Lab Data Labs: Laboratory Results - last 24 hr 04/08/25 06:00 WBC 9.2 RBC 4.63 Hgb 13.8 Hct 41.1 MCV 88.8 MCH 29.8 MCHC 33.6 RDW Std Deviation 42.1 RDW Coeff of Pati 13.1 Plt Count 244 MPV 11.1 Immature Gran % (Auto) 1.100 H Neut % (Auto) 67.3 Lymph % (Auto) 23.5 Glenn % (Auto) 5.4 Eos % (Auto) 2.5 Baso % (Auto) 0.2 Absolute Neuts (auto) 6.2 Absolute Lymphs (auto) 2.15 Nucleated RBC % 0 Sodium 139 Potassium 3.4 Chloride 104 Carbon Dioxide 21.7 Anion Gap 13 BUN 10 Creatinine 0.61 L Estim Creat Clear Calc 138.02 Est GFR (MDRD) Non-Af 120 BUN/Creatinine Ratio 15.8 Glucose 107 H Calcium 9.2 Total Bilirubin 0.29 AST 16 ALT 11 Alkaline Phosphatase 83 Total Protein 7.0 Albumin 4.0 Globulin 3.0 Albumin/Globulin Ratio 1.4 Lipase 56 HCG, Quant 83852 H Urine Color Yellow Urine Clarity Clear Urine pH 6.0 Ur Specific [place] 1.025 Urine Protein 30 H Urine Glucose (UA) 250 H Urine Ketones Negative Urine Occult Blood Negative Urine Nitrite Negative Urine Bilirubin Negative Urine Urobilinogen 1 H Ur Leukocyte Esterase Negative Urine RBC 0 SEEN Urine WBC 0 SEEN Ur Squamous Epith Cells 0-5 SEEN Urine Bacteria 1+ Urine Mucus 0 SEEN Discharge Plan Triage Chief Complaint: Abd Pain ED Provider: Michelle Jorge Dx/Rx/DC Orders Clinical Impression: Epigastric abdominal pain, , Nausea Instructions: ED Epigastric Pain Uncertain Cause Prescriptions: No Action Vitamin 1 tab PO/SL DAILY Primary Care Provider: Wilmar Chin Referrals: Wilmar Chin DO [Primary Care Provider, Family Practice] Activity Restrictions/Additional Instructions: Be sure to follow-up with your primary care doctor and your [employer] do not hesitate to return if you are having worsening symptoms Print Language: Thai Disposition Disposition: Home, Self Care
[2025-04-08 06:46] LABS: Squamous Epithelial Cells - UA 0-5 SEEN /hpf (5-10)
[2025-04-08 06:55] LABS: AST(SGOT) 16 U/L (<=31); Alanine Aminotransfer ALT/SGPT 11 U/L (<=34); Albumin, Serum 4.0 g/dL (3.5-5.0); Alkaline Phosphatase 83 U/L (35-104); Anion Gap 13 (5-15); BUN 10 mg/dL (4-19); BUN/Creat Ratio 15.8 RATIO (10-20); Calcium,Total 9.2 mg/dL (7.6-11.0); Carbon Dioxide 21.7 mmol/L (21.0-32.0); Chloride 104 mmol/L (98-108); Estimated Creatinine Clearance 138.02 ml/min (50-250); Globulin 3.0 g/dL (2.2-4.2); Glucose 107 mg/dL (70-99); Lipase 56 U/L (13-75); Potassium 3.4 mmol/L (3.3-5.1)
[2025-04-08 07:18] LABS: hCG Titer Quant., Serum 20723 mIU/mL (<9 non-preg)
[2025-04-08 07:21] VITALS: BP 114/59; PULSE 91; RESP 18; TEMP 36.5; O2SAT 100
== END 2025-04-08 07:25 | disposition home or self-care (01) ==
PROVIDERS: Emergency Provider Specialist/Technologist Athletic Trainer; PCP Student in an Organized Health Care Education/Training Program; Visit Provider Specialist/Technologist Athletic Trainer
DX: O26.892 Other specified pregnancy related conditions, second trimester (principal); R10.13 Epigastric pain; R11.0 Nausea; Z3A.17 17 weeks gestation of pregnancy
CPT/HCPCS: 80053; 81001; 83690; 84702; 85025; 96360; 99285; A4216